=== PATIENT | female | born 1940 | race Caucasian/White ===

== ENCOUNTER 2016-10-26 12:58 | Inpatient (IN) | payer MEDICARE, BC ==
[2016-10-26] MEDS ORDERED: Sodium Chloride 0.9% 10 ML Syringe FLUSH PRN ×2 (13:24→14:36)
[2016-10-26] MEDS ORDERED: Sodium Chloride 0.9% 1,000 ML IV SCH (13:30)
[2016-10-26] MEDS ORDERED: Ondansetron 4 MG/2 ML SDV IVPUSH ONE ×2 (14:01→17:20)
--- NOTE | 2016-10-26 14:01 | CT ---
Head CT Technique: Multiple axial sections through the brain were obtained. Intravenous contrast was not utilized. Comparison: No previous intracranial imaging. Findings: Slight basal ganglia calcification is noted. 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 Slight vascular calcification is noted within the anterior third ventricle. Minimal diminished density is noted within the periventricular white matter compatible with small vessel ischemic demyelination change. No other abnormal parenchymal densities are seen. No evidence of intracranial hemorrhage. No midline shift or mass effect is seen. Ventricles along the basal cisterns and sulci over the convexities are within normal limits for the patient's age. Visualized sinuses shows minimal mucosal thickening within the left sphenoid and within the ethmoid sinuses which is felt to be chronic and incidental. No acute calvarial abnormality is identified. Impression: 1. Senescent change as described above. Incidental sinus findings. 2. Nothing acute is appreciated on noncontrast head CT exam. Diagnostic code #2
--- NOTE | 2016-10-26 14:03 | CR ---
Chest: Portable view of the chest was obtained. Comparison: No prior chest x-ray. Heart size and mediastinum are within normal limits for portable technique. Lungs show minimal increased density within the left upper lobe. Lungs otherwise are clear. Bony structures appear unremarkable for the patient's age. Impression: 1. Minimal density within the left upper lung which may represent slight atelectasis although difficult to completely exclude pulmonary mass or small area of pneumonia. Noncontrast chest CT could be considered to further evaluate. 2. Nothing acute is otherwise seen on portable chest x-ray. Diagnostic code #9
[2016-10-26] MEDS ORDERED: Iopamidol 612 MG/ML 100 ML Bottle IVPUSH ONE (14:36)
[2016-10-26] MEDS ORDERED: Diatrizoate Meglumine/Diatrizoate Sodium 37% 120 ML Bottle PO ONE (14:36)
[2016-10-26] MEDS ORDERED: Iopamidol 755 Mg/ML 100 ML Bottle IVPUSH ONE (15:33)
[2016-10-26] MEDS ORDERED: cefTRIAXone 2 GM in Sodium Chloride 0.9% 100 ML IV ONE (15:50)
[2016-10-26] MEDS ORDERED: Sodium Chloride 0.9% 100 ML IV SCH (16:00)
--- NOTE | 2016-10-26 17:02 | EDM.PDOC ---
ED HPI GENERAL MEDICAL PROBLEM - General Chief Complaint: Abdominal Pain Stated Complaint: [facility] Time Seen by Provider: 10/26/16 13:00 Source of Information: Reports: Patient, Family, Significant Other History Limitations: Reports: No Limitations - History of Present Illness INITIAL COMMENTS - FREE TEXT/NARRATIVE: 75-year-old female presents via EMS for evaluation treatment of amnesia and lower abdominal pain. Patient has amnesia on my evaluation does not provide much history. provides most of the history. Reports that he was with her around 9 AM this morning. States that she was having some lower abdominal cramping, pain and diarrhea. States that he went to get groceries. He returned home around 10 AM. Reports that she was very confused. States she did not know where she was and what happened that morning. She was using the bathroom when he came home. He had difficulty getting off the toilet if her had to call the ambulance for help. Upon arrival to the ER she has no facial droop, slurred speech or unilateral weakness. She is orientated to person and date of but does not know the year or where she is at. She is currently complaining of lower abdominal cramping which resolved after a bowel movement. She is also complaining of nausea and states that she vomited 4 or 5 times today. Last bowel movement was today around 10 AM. She had a small soft bowel movement today. Denies any chest pain or shortness of breath. The patient's son has arrived in the ER. He states that she has had similar amnesia events twice in the past. Reports that she has a history of migraines. Sates that she was previously told that she had a TIA. She was transferred to [place]. In [place] they ruled that she had a transient amnesia event. States that she's had MRIs and a further workup done but the etiology for her TIAs or amnesia have not been identified. Previously saw Dr. Nickerson, neurosurgery at [facility]. She is currently only on a half of a baby aspirin daily per her 's report. Recently placed on ciprofloxacin 250 mg daily for chronic urinary tract infections. She is to be on ciprofloxacin for the next 4 months. Lower Abdomen Pain Score (Numeric/FACES): 7 - Related Data Allergies Allergy/AdvReac Type Severity Reaction Status Date / Time No Known Allergies Allergy Verified 10/26/16 23:26 Home Meds: Home Meds Estradiol [Vagifem] 10 mcg VG WEEKLY 10/10/13 [History] Levothyroxine [Synthroid] 88 mcg PO DAILY 10/10/13 [History] Aspirin 40 mg PO ASDIRECTED 10/26/16 [History] Ciprofloxacin HCl [Cipro] 250 mg PO DAILY 10/26/16 [History] Colon Health 1 tab PO ASDIRECTED 10/26/16 [History] L Acidophil/B Lactis/B Longum [Florajen3] 1 tab PO DAILY 10/26/16 [History] Sennosides/Docusate Sodium [Stool Soft-Stimulant Lax] 1 tab PO ASDIRECTED [History] Past Medical History Cardiovascular History: Reports: Other (See Below) Other Cardiovascular History: hypotension Gastrointestinal History: Reports: Chronic Constipation Genitourinary History: Reports: UTI, Recurrent Musculoskeletal History: Reports: Osteoarthritis Neurological History: Reports: TIA Other Neuro History: x 2 Endocrine/Metabolic History: Reports: Hypothyroidism - Past Surgical History Female Surgical History: Reports: Hysterectomy Musculoskeletal Surgical History: Reports: Other (See Below) Other Musculoskeletal Surgeries/Procedures:: injections to knees Social & Family History - Tobacco Use Smoking Status *Q: Former Smoker Used Tobacco, but Quit: Yes Month Tobacco Last Used: 20 yrs Second Hand Smoke Exposure: No - Caffeine Use Caffeine Use: Reports: Coffee, Soda - Recreational Drug Use Recreational Drug Use: No ED ROS GENERAL - Review of Systems Review Of Systems: See Below (obtained from ) Constitutional: Denies: Fever Respiratory: Denies: Cough GI/Abdominal: Reports: Abdominal Pain (lower abdomen), Diarrhea, Nausea, Vomiting : Reports: Other (frequent UTIs, currently on cipro) Neurological: Reports: Confusion, Weakness. Denies: Headache, Trouble Speaking ED EXAM, GI/ABD - Physical Exam Exam: See Below Exam Limited By: No Limitations General Appearance: WD/WN, Lethargic, Mild Distress, Other (orientated to person and , not orientated to place or time) Eyes: Bilateral: Normal Appearance (PERRLA), EOMI Ears: Normal External Exam Nose: Normal Inspection Throat/Mouth: Normal Inspection, Normal Lips, Normal Voice, No Airway Compromise Respiratory/Chest: No Respiratory Distress, Lungs Clear, Normal Breath Sounds Cardiovascular: Normal Peripheral Pulses, Regular Rate, Rhythm, No Murmur GI/Abdominal Exam: Normal Bowel Sounds, Soft, Tender (lower abdomen greatest in the left lower quadrant) Neurological: Alert, CN II-XII Intact, Confused, Slow to Respond, Memory Loss Recent Events, Other (orientated to person and but not place or time; purchasing assistant, dorsiflexion and plantarflexion are 5/5 bilaterally; no pronator drift, smile is symmetric, able to lift eyebrows, no slurred speech ) Skin Exam: Warm, Dry, Normal Color EKG INTERPRETATION EKG Date: 10/26/16 Time: 13:30 Rhythm: NSR Rate (Beats/Min): 70 [place]: Normal P-Wave: Present QRS: Normal ST-T: Normal QT: Normal EKG Interpretation Comments: NSR at 70 bpm. No acute changes. Reviewed by myself and Dr. Koch. Course - Vital Signs Last Recorded V/S: Last Vital Signs Temp 38.1 C 10/27/16 03:00 Pulse 66 10/26/16 13:06 Resp 13 10/27/16 03:00 BP 112/53 L 10/27/16 03:00 Pulse Ox 99 10/27/16 03:00 - Orders/Labs/Meds Orders: Active Orders 24 hr Category Date Time Status Peripheral IV Care [RC] Q2HR Care 10/26/16 13:24 Active CULTURE BLOOD [BC] Stat Lab 10/26/16 14:30 Received CULTURE BLOOD [BC] Stat Lab 10/26/16 15:00 Received CULTURE URINE [RM] Stat Lab 10/26/16 14:43 Received Sodium Chloride 0.9% [Saline Flush] Med 10/26/16 13:24 Active 10 ml FLUSH ASDIRECTED PRN Sodium Chloride 0.9% [Saline Flush] Med 10/26/16 14:36 Active 10 ml FLUSH ONETIME PRN Blood Culture x2 Reflex Set [OM.PC] Stat Oth 10/26/16 13:24 Ordered Peripheral IV Insertion Adult [OM.PC] Routine Oth 10/26/16 13:24 Ordered Medication Orders Acetaminophen (Tylenol) 650 mg PO Q6H PRN PRN Reason: Pain/Fever Enoxaparin Sodium (Lovenox) 40 mg SUBCUT DAILY PAMELA Last Admin: 10/27/16 08:24 Dose: 40 mg Hydromorphone HCl (Dilaudid) 0.5 mg IVPUSH Q6H PRN PRN Reason: Pain (moderate 4-6) Last Admin: 10/27/16 08:13 Dose: 0.5 mg Admin: 10/27/16 01:29 Dose: 0.5 mg Sodium Chloride (Sodium Chloride 0.45%) 1,000 mls @ 999 mls/hr IV ASDIRECTED [facility] Last Admin: 10/27/16 01:05 Dose: 100 mls/hr Infusion: 10/27/16 01:05 Dose: 999 mls/hr Admin: 10/27/16 00:04 Dose: 999 mls/hr Infusion: 10/27/16 00:03 Dose: 999 mls/hr Admin: 10/26/16 23:02 Dose: 999 mls/hr Ceftriaxone Sodium 2 gm/ (Sodium Chloride) 100 mls @ 200 mls/hr IV Q24H [facility] Metronidazole 500 mg/ Premix 100 mls @ 100 mls/hr IV Q8H [facility] Last Admin: 10/27/16 03:05 Dose: 100 mls/hr Infusion: 10/26/16 22:54 Dose: 100 mls/hr Admin: 10/26/16 21:54 Dose: 100 mls/hr Ketorolac Tromethamine (Toradol) 15 mg IVPUSH Q8H PRN PRN Reason: Pain (severe 7-10) Levothyroxine Sodium (Synthroid) 88 mcg PO ACBREAKFAST [facility] Last Admin: 10/27/16 06:43 Dose: 88 mcg Metoclopramide HCl (Reglan) 10 mg IVPUSH Q6H [facility] Last Admin: 10/27/16 08:21 Dose: 10 mg Admin: 10/27/16 03:05 Dose: 10 mg Admin: 10/26/16 21:34 Dose: 10 mg Ondansetron HCl (Zofran) 4 mg IVPUSH Q8H PRN PRN Reason: Nausea/Vomiting Saccharomyces Boulardii (Florastor) 250 mg PO DAILY [facility] Last Admin: 10/27/16 08:28 Dose: 250 mg Senna/Docusate Sodium (Senna Plus) 2 tab PO BID PRN PRN Reason: Constipation Sodium Chloride (Saline Flush) 10 ml FLUSH ASDIRECTED PRN PRN Reason: Keep Vein Open Last Admin: 10/26/16 14:06 Dose: 10 ml Sodium Chloride (Saline Flush) 10 ml FLUSH ONETIME PRN PRN Reason: IV FLUSH Last Admin: 10/26/16 16:34 Dose: 10 ml Labs: Laboratory Tests 10/26/16 10/26/16 10/26/16 Range/Units 14:30 14:30 14:30 WBC 12.49 H (3.98-10.04) K/mm3 RBC 5.12 (3.98-5.22) M/mm3 Hgb 16.0 H (11.2-15.7) gm/L Hct 46.1 H (34.1-44.9) % MCV 90.0 (79.4-94.8) fl MCH 31.3 (25.6-32.2) pg MCHC 34.7 (32.2-35.5) g/dl RDW Std Deviation 41.4 (36.4-46.3) fL Plt Count 219 (182-369) K/mm3 MPV 10.0 (9.4-12.3) fl Neutrophils % (Manual) 85 H (40-60) % Band Neutrophils % 3 (0-10) % Lymphocytes % (Manual) 11 L (20-40) % Atypical Lymphs % 0 % Monocytes % (Manual) 1 L (2-10) % Eosinophils % (Manual) 0 L (0.7-5.8) % Basophils % (Manual) 0 L (0.1-1.2) Toxic Granulation Few Platelet Estimate Adequate Plt Morphology Comment Normal RBC Morph Comment Normal PT 10.2 (8.0-13.0) SECONDS INR 0.94 APTT 23 (22-36) SECONDS Sodium 138 (136-145) mEq/L Potassium 3.4 L (3.5-5.1) mEq/L Chloride 102 (98-107) mEq/L Carbon Dioxide 22 (21-32) mEq/L Anion Gap 17.4 H (5-15) BUN 23 H (7-18) mg/dL Creatinine 1.2 H (0.55-1.02) mg/dL Est Cr Clr Drug Dosing 37.57 mL/min Estimated GFR (MDRD) 44 (>60) mL/min BUN/Creatinine Ratio 19.2 H (14-18) Glucose 132 H (83-115) mg/dL Lactic Acid (0.4-2.0) mmol/L Calcium 9.9 (8.5-10.1) mg/dL Total Bilirubin 0.7 (0.2-1.0) mg/dL AST 36 (15-37) U/L ALT 45 (14-59) U/L Alkaline Phosphatase 175 H (46-116) U/L C-Reactive Protein < 0.2 (<1.0) mg/dL Total Protein 8.0 (6.4-8.2) g/dl Albumin 4.4 (3.4-5.0) g/dl Globulin 3.6 gm/dL Albumin/Globulin Ratio 1.2 (1-2) Lipase 194 (73-393) U/L Urine Color (Yellow) Urine Appearance (Clear) Urine pH (5.0-8.0) Ur Specific [place] (1.005-1.030) Urine Protein (Negative) Urine Glucose (UA) (Negative) Urine Ketones (Negative) Urine Occult Blood (Negative) Urine Nitrite (Negative) Urine Bilirubin (Negative) Urine Urobilinogen (0.2-1.0) Ur Leukocyte Esterase (Negative) Urine RBC (0-5) /hpf Urine WBC (0-5) /hpf Urine WBC Clumps (NOT SEEN) /hpf Ur Epithelial Cells (0-5) /hpf Urine Bacteria (FEW) /hpf Urine Mucus (FEW) /hpf 10/26/16 10/26/16 10/26/16 Range/Units 14:30 14:43 19:48 WBC (3.98-10.04) K/mm3 RBC (3.98-5.22) M/mm3 Hgb (11.2-15.7) gm/L Hct (34.1-44.9) % MCV (79.4-94.8) fl MCH (25.6-32.2) pg MCHC (32.2-35.5) g/dl RDW Std Deviation (36.4-46.3) fL Plt Count (182-369) K/mm3 MPV (9.4-12.3) fl Neutrophils % (Manual) (40-60) % Band Neutrophils % (0-10) % Lymphocytes % (Manual) (20-40) % Atypical Lymphs % % Monocytes % (Manual) (2-10) % Eosinophils % (Manual) (0.7-5.8) % Basophils % (Manual) (0.1-1.2) Toxic Granulation Platelet Estimate Plt Morphology Comment RBC Morph Comment PT (8.0-13.0) SECONDS INR APTT (22-36) SECONDS Sodium (136-145) mEq/L Potassium (3.5-5.1) mEq/L Chloride (98-107) mEq/L Carbon Dioxide (21-32) mEq/L Anion Gap (5-15) BUN (7-18) mg/dL Creatinine (0.55-1.02) mg/dL Est Cr Clr Drug Dosing mL/min Estimated GFR (MDRD) (>60) mL/min BUN/Creatinine Ratio (14-18) Glucose (83-115) mg/dL Lactic Acid 2.8 H 2.1 H (0.4-2.0) mmol/L Calcium (8.5-10.1) mg/dL Total Bilirubin (0.2-1.0) mg/dL AST (15-37) U/L ALT (14-59) U/L Alkaline Phosphatase (46-116) U/L C-Reactive Protein (<1.0) mg/dL Total Protein (6.4-8.2) g/dl Albumin (3.4-5.0) g/dl Globulin gm/dL Albumin/Globulin Ratio (1-2) Lipase (73-393) U/L Urine Color Dark yellow (Yellow) Urine Appearance Slt cloudy H (Clear) Urine pH 6.0 (5.0-8.0) Ur Specific [place] 1.025 (1.005-1.030) Urine Protein 1+ H (Negative) Urine Glucose (UA) Negative (Negative) Urine Ketones 3+ H (Negative) Urine Occult Blood Negative (Negative) Urine Nitrite Positive H (Negative) Urine Bilirubin 1+ H (Negative) Urine Urobilinogen 1.0 (0.2-1.0) Ur Leukocyte Esterase Trace H (Negative) Urine RBC 0-5 (0-5) /hpf Urine WBC 10-20 H (0-5) /hpf Urine WBC Clumps Few (NOT SEEN) /hpf Ur Epithelial Cells 0-5 (0-5) /hpf Urine Bacteria Many H (FEW) /hpf Urine Mucus Not seen (FEW) /hpf Meds: Medications Generic Name Dose Route Start Last Admin Trade Name Freq PRN Reason Stop Dose Admin Acetaminophen 650 mg 10/26/16 20:19 Tylenol PO Q6H PRN Pain/Fever Enoxaparin Sodium 40 mg 10/27/16 09:00 10/27/16 08:24 Lovenox SUBCUT 40 mg DAILY PAMELA Administration Hydromorphone HCl 0.5 mg 10/26/16 20:19 10/27/16 08:13 Dilaudid IVPUSH 0.5 mg Q6H PRN Administration Pain (moderate 4-6) Sodium Chloride 1,000 mls @ 999 mls/hr 10/26/16 20:30 10/27/16 01:05 Sodium Chloride 0.45% IV 100 mls/hr ASDIRECTED PAMELA Administration Ceftriaxone Sodium 2 gm/ 100 mls @ 200 mls/hr 10/27/16 16:00 Sodium Chloride IV Q24H PAMELA Metronidazole 500 mg/ Premix 100 mls @ 100 mls/hr 10/26/16 20:00 10/27/16 03: 05 IV 100 mls/hr Q8H PAMELA Administration Ketorolac Tromethamine 15 mg 10/26/16 20:27 Toradol IVPUSH Q8H PRN Pain (severe 7-10) Levothyroxine Sodium 88 mcg 10/27/16 06:00 10/27/16 06:43 Synthroid PO 88 mcg ACBREAKFAST PAMELA Administration Metoclopramide HCl 10 mg 10/26/16 20:30 10/27/16 08:21 Reglan IVPUSH 10 mg Q6H PAMELA Administration Ondansetron HCl 4 mg 10/26/16 20:15 Zofran IVPUSH Q8H PRN Nausea/Vomiting Saccharomyces Boulardii 250 mg 10/27/16 09:00 10/27/16 08:28 Florastor PO 250 mg DAILY PAMELA Administration Senna/Docusate Sodium 2 tab 10/27/16 09:09 Senna Plus PO BID PRN Constipation Sodium Chloride 10 ml 10/26/16 13:24 10/26/16 14:06 Saline Flush FLUSH 10 ml ASDIRECTED PRN Administration Keep Vein Open Sodium Chloride 10 ml 10/26/16 14:36 10/26/16 16:34 Saline Flush FLUSH 10 ml ONETIME PRN Administration IV FLUSH Discontinued Medications Generic Name Dose Route Start Last Admin Trade Name Freq PRN Reason Stop Dose Admin Diatrizoate Meglum/Diatrizoate Sod 120 ml 10/26/16 14:36 10/26/16 16:46 Gastrografin 37% PO 10/26/16 14:37 45 ml ONETIME ONE Administration Sodium Chloride 1,000 mls @ 999 mls/hr 10/26/16 13:30 10/26/16 14:07 Normal Saline IV 100 mls/hr ASDIRECTED PAMELA Administration Ceftriaxone Sodium 2 gm/ 100 mls @ 200 mls/hr 10/26/16 15:50 10/26/16 16:08 Sodium Chloride IV 10/26/16 16:19 200 mls/hr ONETIME ONE Administration Sodium Chloride 100 mls @ 65 mls/hr 10/26/16 16:00 10/26/16 16:33 Normal Saline IV 65 mls/hr ASDIRECTED PAMELA Administration Iopamidol 100 ml 10/26/16 14:36 Isovue-300 (61%) IVPUSH 10/26/16 14:37 ONETIME ONE Iopamidol 100 ml 10/26/16 15:33 10/26/16 16:33 Isovue-370 (76%) IVPUSH 10/26/16 15:34 100 ml ONETIME ONE Administration Ondansetron HCl 4 mg 10/26/16 14:01 10/26/16 14:08 Zofran IVPUSH 10/26/16 14:02 4 mg ONETIME ONE Administration Ondansetron HCl 4 mg 10/26/16 17:20 10/26/16 17:24 Zofran IVPUSH 10/26/16 17:21 4 mg ONETIME ONE Administration Senna/Docusate Sodium 1 tab 10/26/16 20:15 Senna Plus PO ASDIRECTED PAMELA - Radiology Interpretation Free Text/Narrative:: Chest xray impression per Dr. Crook: 1. Minimal density within the left upper chest which may represent slight atelectasis although difficult to completely exclude pulmonary mass or small area of pneumonia. Noncontrast chest CT could be considered to further evaluate. 2. Nothing acute is otherwise seen on portable chest x-ray. Head CT impression per Dr. Crook. Head CT obtained without contrast. 1. Senescent change as described. Incidental sinus findings. Old chronic infarct within the left basal ganglia. 2. Nothing acute is identified on noncontrast head CT. Chest and abdomen pelvis with IV and oral contrast impression per Dr. Chow. 1. Multiple small subpleural nodules within the right lung base. Follow-up noncontrast chest CT recommended in 6 months to convert stability. This follow- up exam would occur in April,. 2. No left-sided density is seen to correlate to question finding on recent chest x-ray. 3. Other incidental findings. 1. Diffuse bowel wall thickening within the descending and sigmoid colon with surrounding inflammatory change. Findings compatible with a nonspecific colitis. 2. Other incidental findings. - Re-Assessments/Exams Free Text/Narrative Re-Assessment/Exam: 10/26/16 20:53 Labs include the following wbc is 12.49, hgb is 16.0 and plts are 219 pt is 10.2, inr is 0.94 ptt is 23 lipase is 194 sodium is 138, potassium is 3.4 and chloride is 102. anion gap is 17.4. creatinine is 1.2 crp is <0.2 lactic acid is 2.8, repeated approximately 6 hours later was 2.1 UA has + nitrites, trace leuks, 1+ protein and 3+ ketones. C. Diff is negative I spoke with neurology at [facility] in [place]. Transient amnesia rarely repeats itself. Question if she is having seizures. Recommended EEG and MRI, if she has not already had one, as an outpatient. Follow-up with neurology. She is forming new memories while in the ER but continues to not recall much from this morning. She is now orientated to place and year. I feel she should be admitted for colitis, UTI and ultered mental status. She has received 2grams IV rocephin in the ER, 8mg zofran and 1L NS. Nausea has resolved with zofran. Discussed case with Dr. Fish, Hospitalist, she agrees to the admission. Unfortunately med/surg is on diversion at this time. She will go to the ICU as a med/surg patient due to staffing issues. Departure - Departure Time of Disposition: 20:55 Disposition: Admitted As Inpatient 68 Condition: Fair Clinical Impression: Colitis, Urinary tract infection - Discharge Information - My Orders Last 24 Hours: My Active Orders 10/26/16 13:24 Peripheral IV Care [RC] Q2HR Sodium Chloride 0.9% [Saline Flush] 10 ml FLUSH ASDIRECTED PRN Blood Culture x2 Reflex Set [OM.PC] Stat Peripheral IV Insertion Adult [OM.PC] Routine 10/26/16 14:30 CULTURE BLOOD [BC] Stat 10/26/16 14:36 Sodium Chloride 0.9% [Saline Flush] 10 ml FLUSH ONETIME PRN 10/26/16 14:43 CULTURE URINE [RM] Stat 10/26/16 15:00 CULTURE BLOOD [BC] Stat - Assessment/Plan Last 24 Hours: My Active Orders 10/26/16 13:24 Peripheral IV Care [RC] Q2HR Sodium Chloride 0.9% [Saline Flush] 10 ml FLUSH ASDIRECTED PRN Blood Culture x2 Reflex Set [OM.PC] Stat Peripheral IV Insertion Adult [OM.PC] Routine 10/26/16 14:30 CULTURE BLOOD [BC] Stat 10/26/16 14:36 Sodium Chloride 0.9% [Saline Flush] 10 ml FLUSH ONETIME PRN 10/26/16 14:43 CULTURE URINE [RM] Stat 10/26/16 15:00 CULTURE BLOOD [BC] Stat
--- NOTE | 2016-10-26 17:07 | CT ---
CT chest Technique: Multiple axial sections through the chest are obtained. Intravenous contrast was utilized. Comparison: Previous chest x-ray performed on the same day. Findings: Multiple small subpleural nodules are identified within the right lung base. These show no calcification. Largest nodule measures about 4.8 mm. Slight atelectasis or scarring is seen within the lingula. Lungs otherwise are clear. Density on chest x-ray is not confirmed on the chest CT. Mediastinum and hilar regions show no adenopathy or mass. Slight ectatic descending aorta is noted with AP dimension of 2.7 cm. No pericardial effusion is seen. Bone window settings were reviewed which show slight degenerative change within the spine. Impression: 1. Multiple small subpleural nodules within the right lung base. Follow-up noncontrast chest CT recommended in 6 months to confirm stability. This follow-up exam would occur in April,. 2. No left-sided density is seen to correlate to questioned finding on recent chest x-ray. 3. Other incidental findings. Diagnostic code #9 CT abdomen and pelvis Technique: Multiple axial sections were obtained from above the dome of the diaphragm inferiorly through the pubic symphysis. Intravenous and oral contrast was utilized. Delayed images were also obtained through the abdomen and pelvis. Findings: Diffuse bowel wall thickening is seen within the descending colon and sigmoid colon. Inflammatory change is seen around the descending and sigmoid colon. Liver shows no focal abnormality. Spleen appears within normal limits. Adrenal glands show no nodule. Kidneys show symmetric contrast enhancement without hydronephrosis or mass. Aorta shows atherosclerotic change which continues into the iliac vessels. No aneurysm is seen. Pancreas appears within normal limits. No retroperitoneal adenopathy or mesenteric abnormalities are seen. No pelvic mass or adenopathy is seen. Delayed images shows contrast within the ureters and bladder without findings of obstruction. Bone window settings were reviewed which shows compression deformity T8 which appears to be old. Minimal degenerative change is seen primarily within the apophyseal joints of the lower lumbar spine. Impression: 1. Diffuse bowel wall thickening within the descending and sigmoid colons with surrounding inflammatory change. Findings compatible with a nonspecific colitis. 2. Other incidental findings as described above. Diagnostic code #3
[2016-10-26] MEDS ORDERED: Ondansetron 4 MG/2 ML SDV IVPUSH PRN (20:15)
[2016-10-26] MEDS ORDERED: Acetaminophen Soln 650 MG/20.3 ML UD Cup PO PRN (20:19)
[2016-10-26] MEDS ORDERED: Ketorolac 15 MG/ML SDV IVPUSH PRN (20:27)
--- NOTE | 2016-10-26 20:30 | PCM.HP ---
H&P History of Present Illness - General Date of Service: 10/26/16 Source of Information: Patient, Family, Provider History Limitations: Reports: No Limitations - History of Present Illness Initial Comments - Free Text/Narative: 75 year old female with a history of chronic UTIs, had been started on Cipro by her PCP. She presented to the ED with multiple complaints, MS telemetry admission was initiated after acute on chronic UTI, failed outpatient therapy was documented. She additionally was found to have diverticulitis with a complaint of abdominal pain. She has chronic constipation and requires laxatives to have a bowel movement. Associated with the abdominal pain is nausea with occasional vomiting. There has been no fever or chills. She has had most of primary medical needs via the walk in clinic. Additionally has unfortunately not seen a urologist or restaurant hourly team member regarding her frequent UTIs in several years. She has had a diagnosis of transient amnesia, this reportedly was diagnosed in [place]; additional neurology history includes migraine headaches. There is also a possible TIA history which requires clarification. Onset of Symptoms: Reports: Unknown/Unsure Duration of Symptoms: Reports: Day(s):, Getting Worse Location: Reports: Abdomen Quality: Reports: Same as Previous Episode Severity: Moderate Associated Symptoms: Reports: Malaise, Weakness Lower Abdomen Pain Score (Numeric/FACES): 7 - Related Data Allergies/Adverse Reactions: Allergies Allergy/AdvReac Type Severity Reaction Status Date / Time No Known Allergies Allergy Verified 10/26/16 23:26 Home Medications: Home Meds Estradiol [Vagifem] 10 mcg VG WEEKLY 10/10/13 [History] Levothyroxine [Synthroid] 88 mcg PO DAILY 10/10/13 [History] Aspirin 40 mg PO ASDIRECTED 10/26/16 [History] Ciprofloxacin HCl [Cipro] 250 mg PO DAILY 10/26/16 [History] Colon Health 1 tab PO ASDIRECTED 10/26/16 [History] L Acidophil/B Lactis/B Longum [Florajen3] 1 tab PO DAILY 10/26/16 [History] Sennosides/Docusate Sodium [Stool Soft-Stimulant Lax] 1 tab PO ASDIRECTED [History] Acetaminophen/Butalbital/Caff [Fioricet 325-50-40 MG] 2 tab PO Q8H PRN 10/27/16 [History] Past Medical History Cardiovascular History: Reports: Other (See Below) Other Cardiovascular History: hypotension Gastrointestinal History: Reports: Chronic Constipation Genitourinary History: Reports: UTI, Recurrent Musculoskeletal History: Reports: Osteoarthritis Neurological History: Reports: TIA Other Neuro History: x 2 Endocrine/Metabolic History: Reports: Hypothyroidism - Past Surgical History Female Surgical History: Reports: Hysterectomy Musculoskeletal Surgical History: Reports: Other (See Below) Other Musculoskeletal Surgeries/Procedures:: injections to knees Social & Family History - Tobacco Use Smoking Status *Q: Former Smoker Used Tobacco, but Quit: Yes Month Tobacco Last Used: 20 yrs Second Hand Smoke Exposure: No - Caffeine Use Caffeine Use: Reports: Coffee, Soda - Recreational Drug Use Recreational Drug Use: No H&P Review of Systems - Review of Systems: Review Of Systems: See Below General: Reports: Malaise, Weakness HEENT: Reports: No Symptoms Pulmonary: Reports: No Symptoms Cardiovascular: Reports: No Symptoms Gastrointestinal: Reports: Abdominal Pain, Constipation Genitourinary: Reports: No Symptoms Musculoskeletal: Reports: No Symptoms Skin: Reports: No Symptoms Psychiatric: Reports: No Symptoms Neurological: Reports: No Symptoms Hematologic/Lymphatic: Reports: No Symptoms Immunologic: Reports: No Symptoms Exam - Exam Exam: See Below - Vital Signs Vital Signs: Last Vital Signs Temp 36.2 C 10/26/16 13:06 Pulse 66 10/26/16 13:06 Resp 17 10/26/16 13:06 BP 143/68 H 10/26/16 13:06 Pulse Ox 100 10/26/16 13:06 Weight: 68.039 kg - Exam Quality Assessment: DVT Prophylaxis General: Alert, Oriented HEENT: EOMI, Hearing Intact, Nares Patent, Normal Nasal Septum, Pupils Equal, Pupils Reactive Neck: Supple, Trachea Midline Lungs: Normal Respiratory Effort Cardiovascular: Regular Rate, Regular Rhythm GI/Abdominal Exam: Soft, Non-Tender, No Organomegaly, No Distention (Female) Exam: Deferred Rectal (Female) Exam: Deferred Back Exam: Normal Inspection Extremities: Normal Inspection Skin: Warm Neurological: Cranial Nerves Intact Neuro Extensive - Mental Status: Alert, Oriented x3 Neuro Extensive - Motor, Sensory, Reflexes: CN II-XII Intact Psychiatric: Alert, Depressed - Patient Data Result Diagrams: 10/27/16 06:01 10/27/16 06:01 *Q Meaningful Use (ADM) - VTE *Q VTE Criteria *Q: - Stroke *Q Stroke Criteria *Q: - AMI *Q AMI Criteria *Q: - Problem List (1) Migraine SNOMED Code(s): 20834613 ICD Code: G43.909 - MIGRAINE, UNSP, NOT INTRACTABLE, WITHOUT STATUS MIGRAINOSUS Status: Acute Current Visit: Yes (2) Constipation SNOMED Code(s): 40532857 ICD Code: K59.00 - CONSTIPATION, UNSPECIFIED Status: Acute Current Visit : Yes (3) Colitis SNOMED Code(s): 01283570 ICD Code: K52.9 - NONINFECTIVE GASTROENTERITIS AND COLITIS, UNSPECIFIED Status: Acute Current Visit: Yes (4) Urinary tract infection SNOMED Code(s): 95715596 ICD Code: N39.0 - URINARY TRACT INFECTION, SITE NOT SPECIFIED Status: Acute Current Visit: Yes Problem List Initiated/Reviewed/Updated: Yes Orders Last 24hrs: Active Orders 24 hr Category Date Time Status Activity as Tolerated [RC] .Routine Care 10/26/16 20:20 Ordered Antiembolic Devices [RC] PER UNIT ROUTINE Care 10/26/16 20:17 Ordered Consult to Occupational Therapy [OT Evaluation and Cons 10/26/16 20:21 Ordered Treatment] [CONS] Routine Consult to Physical Therapy [PT Evaluation and Cons 10/26/16 20:20 Ordered Treatment] [CONS] Routine Consult to Sizing Machine Tender [CONS] Routine Cons 10/26/16 20:20 Ordered NPO [Nothing Per Oral Diet] [DIET] Diet 10/27/16 Breakfast Ordered BASIC METABOLIC PANEL,BMP [CHEM] DAILY Lab 10/27/16 05:00 Ordered BASIC METABOLIC PANEL,BMP [CHEM] DAILY Lab 10/28/16 05:00 Ordered BASIC METABOLIC PANEL,BMP [CHEM] DAILY Lab 10/29/16 05:00 Ordered BASIC METABOLIC PANEL,BMP [CHEM] DAILY Lab 10/30/16 05:00 Ordered CBC WITH AUTO DIFF [HEME] DAILY Lab 10/27/16 05:00 Ordered CBC WITH AUTO DIFF [HEME] DAILY Lab 10/28/16 05:00 Ordered CBC WITH AUTO DIFF [HEME] DAILY Lab 10/29/16 05:00 Ordered CBC WITH AUTO DIFF [HEME] DAILY Lab 10/30/16 05:00 Ordered CRP [C-REACTIVE PROTEIN] [CHEM] DAILY Lab 10/27/16 05:00 Ordered CRP [C-REACTIVE PROTEIN] [CHEM] DAILY Lab 10/28/16 05:00 Ordered CRP [C-REACTIVE PROTEIN] [CHEM] DAILY Lab 10/29/16 05:00 Ordered CRP [C-REACTIVE PROTEIN] [CHEM] DAILY Lab 10/30/16 05:00 Ordered LACTIC ACID [CHEM] DAILY Lab 10/27/16 05:00 Ordered LACTIC ACID [CHEM] DAILY Lab 10/28/16 05:00 Ordered MAGNESIUM [CHEM] DAILY Lab 10/27/16 05:00 Ordered MAGNESIUM [CHEM] DAILY Lab 10/28/16 05:00 Ordered MAGNESIUM [CHEM] DAILY Lab 10/29/16 05:00 Ordered MAGNESIUM [CHEM] DAILY Lab 10/30/16 05:00 Ordered WBC, STOOL [OP] Routine Lab 10/27/16 05:00 Uncollected Acetaminophen [Tylenol] Med 10/26/16 20:19 Ordered 650 mg PO Q6H PRN Docusate Sodium/Sennosides [Senna Plus] Med 10/26/16 20:15 Ordered 1 tab PO ASDIRECTED Enoxaparin [Lovenox] Med 10/27/16 09:00 Ordered 30 mg SUBCUT DAILY HYDROmorphone [Dilaudid] Med 10/26/16 20:19 Ordered 0.5 mg IVPUSH Q6H PRN Ketorolac [Toradol] Med 10/26/16 20:27 Ordered 15 mg IVPUSH Q8H PRN L Acidophil/B Lactis/B Longum [Florajen3] Med 10/27/16 09:00 Ordered 1 tab PO DAILY Levothyroxine [Synthroid] Med 10/27/16 09:00 Ordered 88 mcg PO DAILY Metoclopramide [Reglan] Med 10/26/16 20:30 Ordered 10 mg IVPUSH Q6H Ondansetron [Zofran] Med 10/26/16 20:15 Ordered 4 mg IVPUSH Q8H PRN Sodium Chloride 0.45% 1,000 ml Med 10/26/16 20:30 Ordered IV ASDIRECTED cefTRIAXone [Rocephin] 2 gm Med 10/26/16 20:15 Ordered Sodium Chloride 0.9% [Normal Saline] 100 ml IV Q24H metroNIDAZOLE/Normal Saline [Flagyl 500 MG in NS 100 ML Med 10/26/16 20:30 Ordered ] 500 mg Premix Bag 1 bag IV Q8H [facility] Hose [Antiembolic Hose] [OM.PC] Routine Oth 10/26/16 20:17 Ordered Medication Orders Acetaminophen (Tylenol) 650 mg PO Q6H PRN PRN Reason: Pain/Fever Enoxaparin Sodium (Lovenox) 30 mg SUBCUT DAILY [facility] Hydromorphone HCl (Dilaudid) 0.5 mg IVPUSH Q6H PRN PRN Reason: Pain (moderate 4-6) Sodium Chloride (Sodium Chloride 0.45%) 1,000 mls @ 999 mls/hr IV ASDIRECTED [facility] Ceftriaxone Sodium 2 gm/ (Sodium Chloride) 100 mls @ 200 mls/hr IV Q24H [facility] Metronidazole 500 mg/ Premix 100 mls @ 100 mls/hr IV Q8H [facility] Levothyroxine Sodium (Synthroid) 88 mcg PO DAILY [facility] Metoclopramide HCl (Reglan) 10 mg IVPUSH Q6H [facility] Non-Formulary Medication (L Acidophil/B Lactis/B Longum [Florajen3]) 1 tab PO DAILY [facility] Ondansetron HCl (Zofran) 4 mg IVPUSH Q8H PRN PRN Reason: Nausea/Vomiting Senna/Docusate Sodium (Senna Plus) 1 tab PO ASDIRECTED [facility] Sodium Chloride (Saline Flush) 10 ml FLUSH ASDIRECTED PRN PRN Reason: Keep Vein Open Last Admin: 10/26/16 14:06 Dose: 10 ml Sodium Chloride (Saline Flush) 10 ml FLUSH ONETIME PRN PRN Reason: IV FLUSH Last Admin: 10/26/16 16:34 Dose: 10 ml Assessment/Plan Comment:: Impression: Abdominal pain, acute diverticulitis Acute on chronic UTI, failed outpatient Cipro Migraine headache History of transient amnesia (cf TIA) Query depression Plan: NPO IVF Follow electrolytes Pain meds Home meds Rocephin/Flagyl Await Ur Cx Dailly Labs Anti-emetics DVT/GI prohylaxis
[2016-10-26] MEDS: Metoclopramide 10 MG/2 ML SDV IVPUSH SCH (21:34)
[2016-10-26] MEDS: metroNIDAZOLE/Normal Saline 500 MG in Premix Bag 1 BAG IV SCH (21:54)
[2016-10-26] MEDS: Sodium Chloride 0.45% 1,000 ML IV SCH (23:02)
[2016-10-27] MEDS: Sodium Chloride 0.45% 1,000 ML IV SCH ×2 (00:04→01:05)
[2016-10-27] MEDS: HYDROmorphone 0.5 MG/0.5 ML Syringe IVPUSH PRN ×3 (01:29→12:43)
[2016-10-27] MEDS: Metoclopramide 10 MG/2 ML SDV IVPUSH SCH ×4 (03:05→21:13)
[2016-10-27] MEDS: metroNIDAZOLE/Normal Saline 500 MG in Premix Bag 1 BAG IV SCH ×3 (03:05→21:13)
[2016-10-27] MEDS: Levothyroxine 88 MCG Tab PO SCH (06:43)
[2016-10-27] MEDS: Enoxaparin 40 MG/0.4 ML Syringe SUBCUT SCH (08:24)
[2016-10-27] MEDS: Saccharomyces Boulardii (Probiotic) 250 MG Cap PO SCH (08:28)
[2016-10-27] MEDS ORDERED: Magnesium Sulfate/Water 2 GM in Premix Bag 1 BAG IV ONE (10:26)
[2016-10-27] MEDS: Sodium Chloride 0.45% with KCl 1,000 ML IV SCH ×2 (11:17→19:33)
[2016-10-27] MEDS ORDERED: Ondansetron 4 MG/2 ML SDV IVPUSH PRN (12:30)
[2016-10-27] MEDS ORDERED: Caffeine 200 MG Tab PO STA (12:46)
[2016-10-27] MEDS ORDERED: HYDROmorphone 0.5 MG/0.5 ML Syringe IVPUSH PRN (12:49)
[2016-10-27] MEDS ORDERED: Sodium Chloride 0.9% 100 ML ONE (14:35)
[2016-10-27] MEDS: cefTRIAXone 2 GM in Sodium Chloride 0.9% 100 ML IV SCH ×2 (14:40→15:00)
--- NOTE | 2016-10-27 14:54 | PCM.PN ---
- General Info Date of Service: 10/27/16 Functional Status: Reports: Ambulating - Review of Systems General: Reports: Weakness HEENT: Reports: No Symptoms Pulmonary: Reports: No Symptoms Cardiovascular: Reports: No Symptoms Gastrointestinal: Reports: No Symptoms Genitourinary: Reports: No Symptoms Musculoskeletal: Reports: No Symptoms Skin: Reports: No Symptoms Neurological: Reports: No Symptoms Psychiatric: Reports: No Symptoms - Patient Data Vitals - Most Recent: Last Vital Signs Temp 37.2 C 10/27/16 11:35 Pulse 79 10/27/16 11:36 Resp 12 10/27/16 11:35 BP 107/58 L 10/27/16 11:36 Pulse Ox 96 10/27/16 11:36 Weight - Most Recent: 68.039 kg I&O - Last 24 Hours: Intake & Output 10/26/16 10/27/16 10/27/16 22:59 06:59 14:59 Intake Total 2501 Output Total 300 Balance 2201 Lab Results Last 24 Hours: Laboratory Results - last 24 hr 10/27/16 10/27/16 10/27/16 Range/Units 04:34 06:01 06:01 WBC 13.43 H (3.98-10.04) K/mm3 RBC 4.19 (3.98-5.22) M/mm3 Hgb 13.3 (11.2-15.7) gm/L Hct 38.6 (34.1-44.9) % MCV 92.1 (79.4-94.8) fl MCH 31.7 (25.6-32.2) pg MCHC 34.5 (32.2-35.5) g/dl RDW Std Deviation 42.2 (36.4-46.3) fL Plt Count 178 L (182-369) K/mm3 MPV 10.4 (9.4-12.3) fl Neut % (Auto) 83.2 H (34.0-71.1) % Lymph % (Auto) 7.4 L (19.3-51.7) % Yancey % (Auto) 9.2 (4.7-12.5) % Eos % (Auto) 0 L (0.7-5.8) Baso % (Auto) 0.1 (0.1-1.2) % Neut # (Auto) 11.16 H (1.56-6.13) K/mm3 Lymph # (Auto) 1.00 L (1.18-3.74) K/mm3 Yancey # (Auto) 1.23 H (0.24-0.36) K/mm3 Eos # (Auto) 0.00 L (0.04-0.36) K/mm3 Baso # (Auto) 0.02 (0.01-0.08) K/mm3 Manual Slide Review Abnormal smear Sodium 138 (136-145) mEq/L Potassium 3.5 (3.5-5.1) mEq/L Chloride 105 (98-107) mEq/L Carbon Dioxide 22 (21-32) mEq/L Anion Gap 14.5 (5-15) BUN 15 (7-18) mg/dL Creatinine 1.0 (0.55-1.02) mg/dL Est Cr Clr Drug Dosing 39.63 mL/min Estimated GFR (MDRD) 54 (>60) mL/min BUN/Creatinine Ratio 15.0 (14-18) Glucose 116 H (83-115) mg/dL Lactic Acid (0.4-2.0) mmol/L Calcium 7.6 L (8.5-10.1) mg/dL Magnesium 1.7 L (1.8-2.4) mg/dl C-Reactive Protein 5.4 H* (<1.0) mg/dL C.difficile [id number] Presumptive negative C. difficile Tox (PCR) Negative 10/27/16 Range/Units 06:01 WBC (3.98-10.04) K/mm3 RBC (3.98-5.22) M/mm3 Hgb (11.2-15.7) gm/L Hct (34.1-44.9) % MCV (79.4-94.8) fl MCH (25.6-32.2) pg MCHC (32.2-35.5) g/dl RDW Std Deviation (36.4-46.3) fL Plt Count (182-369) K/mm3 MPV (9.4-12.3) fl Neut % (Auto) (34.0-71.1) % Lymph % (Auto) (19.3-51.7) % Yancey % (Auto) (4.7-12.5) % Eos % (Auto) (0.7-5.8) Baso % (Auto) (0.1-1.2) % Neut # (Auto) (1.56-6.13) K/mm3 Lymph # (Auto) (1.18-3.74) K/mm3 Yancey # (Auto) (0.24-0.36) K/mm3 Eos # (Auto) (0.04-0.36) K/mm3 Baso # (Auto) (0.01-0.08) K/mm3 Manual Slide Review Sodium (136-145) mEq/L Potassium (3.5-5.1) mEq/L Chloride (98-107) mEq/L Carbon Dioxide (21-32) mEq/L Anion Gap (5-15) BUN (7-18) mg/dL Creatinine (0.55-1.02) mg/dL Est Cr Clr Drug Dosing mL/min Estimated GFR (MDRD) (>60) mL/min BUN/Creatinine Ratio (14-18) Glucose (83-115) mg/dL Lactic Acid 1.0 (0.4-2.0) mmol/L Calcium (8.5-10.1) mg/dL Magnesium (1.8-2.4) mg/dl C-Reactive Protein (<1.0) mg/dL C.difficile [id number] C. difficile Tox (PCR) Alan Results Last 24 Hours: Microbiology 10/27/16 04:34 Stool for WBCs - Final Stool / Feces Med Orders - Current: Current Medications Acetaminophen (Tylenol) 650 mg PO Q6H PRN PRN Reason: Pain/Fever Acetaminophen/Butalbital/Caffeine (Fioricet 325-50-40 Mg) 2 tab PO Q8H PRN PRN Reason: Headache Enoxaparin Sodium (Lovenox) 40 mg SUBCUT DAILY [facility] Last Admin: 10/27/16 08:24 Dose: 40 mg Hydromorphone HCl (Dilaudid) 0.5 mg IVPUSH Q4H PRN PRN Reason: Pain (moderate 4-6) Ceftriaxone Sodium 2 gm/ (Sodium Chloride) 100 mls @ 200 mls/hr IV Q24H [facility] Last Admin: 10/27/16 14:40 Dose: 200 mls/hr Metronidazole 500 mg/ Premix 100 mls @ 100 mls/hr IV Q8H [facility] Last Admin: 10/27/16 11:18 Dose: 100 mls/hr Potassium Chloride/Sodium Chloride (1/2 Ns With 20 Meq Kcl) 1,000 mls @ 125 mls /hr IV ASDIRECTED [facility] Last Admin: 10/27/16 11:17 Dose: 125 mls/hr Ketorolac Tromethamine (Toradol) 15 mg IVPUSH Q8H PRN PRN Reason: Pain (severe 7-10) Last Admin: 10/27/16 11:24 Dose: 15 mg Levothyroxine Sodium (Synthroid) 88 mcg PO ACBREAKFAST [facility] Last Admin: 10/27/16 06:43 Dose: 88 mcg Metoclopramide HCl (Reglan) 10 mg IVPUSH Q6H [facility] Last Admin: 10/27/16 14:17 Dose: 10 mg Ondansetron HCl (Zofran) 4 mg IVPUSH Q8H PRN PRN Reason: Nausea/Vomiting Ondansetron HCl (Zofran) 4 mg IVPUSH Q8H PRN PRN Reason: Nausea/Vomiting Pantoprazole Sodium (Protonix Iv) 40 mg IVPUSH Q12H [facility] Saccharomyces Boulardii (Florastor) 250 mg PO DAILY [facility] Last Admin: 10/27/16 08:28 Dose: 250 mg Senna/Docusate Sodium (Senna Plus) 2 tab PO BID PRN PRN Reason: Constipation Sodium Chloride (Saline Flush) 10 ml FLUSH ASDIRECTED PRN PRN Reason: Keep Vein Open Last Admin: 10/26/16 14:06 Dose: 10 ml Sodium Chloride (Saline Flush) 10 ml FLUSH ONETIME PRN PRN Reason: IV FLUSH Last Admin: 10/26/16 16:34 Dose: 10 ml Discontinued Medications Caffeine (Caffeine) 200 mg PO NOW STA Stop: 10/27/16 12:47 Last Admin: 10/27/16 14:39 Dose: Not Given Diatrizoate Meglum/Diatrizoate Sod (Gastrografin 37%) 120 ml PO ONETIME ONE Stop: 10/26/16 14:37 Last Admin: 10/26/16 16:46 Dose: 45 ml Hydromorphone HCl (Dilaudid) 0.5 mg IVPUSH Q6H PRN PRN Reason: Pain (moderate 4-6) Last Admin: 10/27/16 12:43 Dose: 0.5 mg Sodium Chloride (Normal Saline) 1,000 mls @ 999 mls/hr IV ASDIRECTED [facility] Last Admin: 10/26/16 14:07 Dose: 100 mls/hr Ceftriaxone Sodium 2 gm/ (Sodium Chloride) 100 mls @ 200 mls/hr IV ONETIME ONE Stop: 10/26/16 16:19 Last Admin: 10/26/16 16:08 Dose: 200 mls/hr Sodium Chloride (Normal Saline) 100 mls @ 65 mls/hr IV ASDIRECTED [facility] Last Admin: 10/26/16 16:33 Dose: 65 mls/hr Sodium Chloride (Sodium Chloride 0.45%) 1,000 mls @ 999 mls/hr IV ASDIRECTED [facility] Last Admin: 10/27/16 01:05 Dose: 100 mls/hr Magnesium Sulfate 2 gm/ Premix 50 mls @ 25 mls/hr IV ONETIME ONE Stop: 10/27/16 12:25 Last Admin: 10/27/16 11:18 Dose: 25 mls/hr Sodium Chloride (Normal Saline) Confirm Administered Dose 100 mls @ as directed .ROUTE .STK-MED ONE Stop: 10/27/16 14:36 Iopamidol (Isovue-300 (61%)) 100 ml IVPUSH ONETIME ONE Stop: 10/26/16 14:37 Iopamidol (Isovue-370 (76%)) 100 ml IVPUSH ONETIME ONE Stop: 10/26/16 15:34 Last Admin: 10/26/16 16:33 Dose: 100 ml Ondansetron HCl (Zofran) 4 mg IVPUSH ONETIME ONE Stop: 10/26/16 14:02 Last Admin: 10/26/16 14:08 Dose: 4 mg Ondansetron HCl (Zofran) 4 mg IVPUSH ONETIME ONE Stop: 10/26/16 17:21 Last Admin: 10/26/16 17:24 Dose: 4 mg Senna/Docusate Sodium (Senna Plus) 1 tab PO ASDIRECTED [facility] - Exam Quality Assessment: DVT Prophylaxis General: Alert, Oriented, No Acute Distress HEENT: Pupils Reactive, EOMI Neck: Supple, Trachea Midline Lungs: Normal Respiratory Effort Cardiovascular: Regular Rate, Regular Rhythm GI/Abdominal Exam: Normal Bowel Sounds, Soft, Non-Tender, No Organomegaly, No Distention (Female) Exam: Deferred Back Exam: Normal Inspection Extremities: Normal Inspection Skin: Warm, Dry, Intact Wound/Incisions: Healing Well Neurological: No New Focal Deficit Psy/Mental Status: Alert - Problem List & Annotations (1) Migraine SNOMED Code(s): 64063374 Code(s): G43.909 - MIGRAINE, UNSP, NOT INTRACTABLE, WITHOUT STATUS MIGRAINOSUS Status: Acute Current Visit: Yes (2) Constipation SNOMED Code(s): 02332277 Code(s): K59.00 - CONSTIPATION, UNSPECIFIED Status: Acute Current Visit: Yes (3) Colitis SNOMED Code(s): 44798294 Code(s): K52.9 - NONINFECTIVE GASTROENTERITIS AND COLITIS, UNSPECIFIED Status: Acute Current Visit: Yes (4) Urinary tract infection SNOMED Code(s): 11884160 Code(s): N39.0 - URINARY TRACT INFECTION, SITE NOT SPECIFIED Status: Acute Current Visit: Yes - Problem List Review Problem List Initiated/Reviewed/Updated: Yes - My Orders Last 24 Hours: My Active Orders 10/26/16 20:00 metroNIDAZOLE/Normal Saline [Flagyl 500 MG in NS 100 ML] 500 mg Premix Bag 1 bag IV Q8H 10/26/16 20:15 Ondansetron [Zofran] 4 mg IVPUSH Q8H PRN 10/26/16 20:17 Antiembolic Devices [RC] PER UNIT ROUTINE [facility]ERESA Hose [Antiembolic Hose] [OM.PC] Routine 10/26/16 20:19 Acetaminophen [Tylenol] 650 mg PO Q6H PRN 10/26/16 20:20 Activity as Tolerated [RC] .Routine Consult to Physical Therapy [PT Evaluation and Treatment] [CONS] Routine Consult to Access Clinician [CONS] Routine 10/26/16 20:21 Consult to Occupational Therapy [OT Evaluation and Treatment] [CONS] Routine 10/26/16 20:27 Ketorolac [Toradol] 15 mg IVPUSH Q8H PRN 10/26/16 20:30 Metoclopramide [Reglan] 10 mg IVPUSH Q6H 10/27/16 06:00 Levothyroxine [Synthroid] 88 mcg PO ACBREAKFAST 10/27/16 09:00 Enoxaparin [Lovenox] 40 mg SUBCUT DAILY Saccharomyces Boulardii [Florastor] 250 mg PO DAILY 10/27/16 09:09 Docusate Sodium/Sennosides [Senna Plus] 2 tab PO BID PRN 10/27/16 10:30 Sodium Chloride 0.45% with KCl [1/2 NS with 20 mEq KCl] 1,000 ml IV ASDIRECTED 10/27/16 12:28 Acetaminophen/Butalbital/Caff [Fioricet 325-50-40 MG] 2 tab PO Q8H PRN Code Status [Resuscitation Status] Routine 10/27/16 12:30 Ondansetron [Zofran] 4 mg IVPUSH Q8H PRN 10/27/16 12:49 HYDROmorphone [Dilaudid] 0.5 mg IVPUSH Q4H PRN 10/27/16 15:00 Pantoprazole [ProTONIX IV] 40 mg IVPUSH Q12H 10/27/16 16:00 cefTRIAXone [Rocephin] 2 gm Sodium Chloride 0.9% [Normal Saline] 100 ml IV Q24H 10/27/16 Breakfast NPO [Nothing Per Oral Diet] [DIET] 10/28/16 05:00 BASIC METABOLIC PANEL,BMP [CHEM] DAILY CBC WITH AUTO DIFF [HEME] DAILY CRP [C-REACTIVE PROTEIN] [CHEM] DAILY LACTIC ACID [CHEM] DAILY MAGNESIUM [CHEM] DAILY TSH [CHEM] Routine 10/29/16 05:00 BASIC METABOLIC PANEL,BMP [CHEM] DAILY CBC WITH AUTO DIFF [HEME] DAILY CRP [C-REACTIVE PROTEIN] [CHEM] DAILY MAGNESIUM [CHEM] DAILY 10/30/16 05:00 BASIC METABOLIC PANEL,BMP [CHEM] DAILY CBC WITH AUTO DIFF [HEME] DAILY CRP [C-REACTIVE PROTEIN] [CHEM] DAILY MAGNESIUM [CHEM] DAILY - Plan Plan:: Impression: Abdominal pain, acute diverticulitis Acute on chronic UTI, failed outpatient Cipro Migraine headache History of transient amnesia (cf TIA) Query depression Plan: NPO IVF Follow electrolytes Pain meds Home meds Rocephin/Flagyl Await Ur Cx Dailly Labs Anti-emetics DVT/GI prohylaxis
[2016-10-27] MEDS: Pantoprazole 40 MG Vial IVPUSH SCH (16:12)
[2016-10-27] MEDS: Acetaminophen/Butalbital/Caffeine 325-50-40 MG Tab PO PRN (19:33)
[2016-10-28] MEDS: Metoclopramide 10 MG/2 ML SDV IVPUSH SCH ×4 (02:31→20:44)
[2016-10-28] MEDS: Pantoprazole 40 MG Vial IVPUSH SCH ×3 (02:31→14:31)
[2016-10-28] MEDS: Acetaminophen/Butalbital/Caffeine 325-50-40 MG Tab PO PRN (04:46)
[2016-10-28] MEDS: metroNIDAZOLE/Normal Saline 500 MG in Premix Bag 1 BAG IV SCH ×3 (04:47→20:34)
[2016-10-28] MEDS: Levothyroxine 88 MCG Tab PO SCH (05:49)
[2016-10-28] MEDS: Saccharomyces Boulardii (Probiotic) 250 MG Cap PO SCH (08:05)
[2016-10-28] MEDS: Enoxaparin 40 MG/0.4 ML Syringe SUBCUT SCH (09:32)
[2016-10-28] MEDS: Sodium Chloride 0.45% with KCl 1,000 ML IV SCH (10:55)
--- NOTE | 2016-10-28 11:34 | PCM.PN ---
- General Info Date of Service: 10/28/16 Functional Status: Reports: Pain Controlled (decreased) - Review of Systems General: Reports: Weakness HEENT: Reports: No Symptoms Pulmonary: Reports: No Symptoms Cardiovascular: Reports: No Symptoms Gastrointestinal: Reports: No Symptoms Genitourinary: Reports: No Symptoms Musculoskeletal: Reports: No Symptoms Skin: Reports: No Symptoms Neurological: Reports: No Symptoms Psychiatric: Reports: No Symptoms - Patient Data Vitals - Most Recent: Last Vital Signs Temp 36.8 C 10/28/16 04:55 Pulse 86 10/28/16 04:55 Resp 18 10/28/16 04:55 BP 125/65 10/28/16 04:55 Pulse Ox 93 L 10/28/16 04:55 Weight - Most Recent: 66.423 kg I&O - Last 24 Hours: Intake & Output 10/27/16 10/28/16 10/28/16 22:59 06:59 14:59 Intake Total 1967 1650 Output Total 350 Balance 1617 1650 Lab Results Last 24 Hours: Laboratory Results - last 24 hr 10/28/16 10/28/16 10/28/16 Range/Units 05:42 05:42 05:42 WBC 12.20 H (3.98-10.04) K/mm3 RBC 4.18 (3.98-5.22) M/mm3 Hgb 13.2 (11.2-15.7) gm/L Hct 38.4 (34.1-44.9) % MCV 91.9 (79.4-94.8) fl MCH 31.6 (25.6-32.2) pg MCHC 34.4 (32.2-35.5) g/dl RDW Std Deviation 41.2 (36.4-46.3) fL Plt Count 183 (182-369) K/mm3 MPV 9.8 (9.4-12.3) fl Neut % (Auto) 84.8 H (34.0-71.1) % Lymph % (Auto) 7.5 L (19.3-51.7) % [place] % (Auto) 7.1 (4.7-12.5) % Eos % (Auto) 0.2 L (0.7-5.8) Baso % (Auto) 0.2 (0.1-1.2) % Neut # (Auto) 10.35 H (1.56-6.13) K/mm3 Lymph # (Auto) 0.91 L (1.18-3.74) K/mm3 [place] # (Auto) 0.87 H (0.24-0.36) K/mm3 Eos # (Auto) 0.03 L (0.04-0.36) K/mm3 Baso # (Auto) 0.02 (0.01-0.08) K/mm3 Manual Slide Review Abnormal smear Sodium 139 (136-145) mEq/L Potassium 4.1 (3.5-5.1) mEq/L Chloride 107 (98-107) mEq/L Carbon Dioxide 21 (21-32) mEq/L Anion Gap 15.1 H (5-15) BUN 8 (7-18) mg/dL Creatinine 1.0 (0.55-1.02) mg/dL Est Cr Clr Drug Dosing 39.63 mL/min Estimated GFR (MDRD) 54 (>60) mL/min BUN/Creatinine Ratio 8.0 L (14-18) Glucose 92 (83-115) mg/dL Lactic Acid 1.0 (0.4-2.0) mmol/L Calcium 8.3 L (8.5-10.1) mg/dL Magnesium 2.2 (1.8-2.4) mg/dl C-Reactive Protein 11.0 H* (<1.0) mg/dL TSH 3rd Generation 1.616 (0.358-3.74) uIU/mL Alan Results Last 24 Hours: Microbiology 10/27/16 04:34 Stool for WBCs - Final Stool / Feces Med Orders - Current: Current Medications Acetaminophen (Tylenol) 650 mg PO Q6H PRN PRN Reason: Pain/Fever Acetaminophen/Butalbital/Caffeine (Fioricet 325-50-40 Mg) 2 tab PO Q8H PRN PRN Reason: Headache Last Admin: 10/28/16 04:46 Dose: 2 tab Enoxaparin Sodium (Lovenox) 40 mg SUBCUT DAILY [facility] Last Admin: 10/28/16 09:32 Dose: 40 mg Hydromorphone HCl (Dilaudid) 0.5 mg IVPUSH Q4H PRN PRN Reason: Pain (moderate 4-6) Ceftriaxone Sodium 2 gm/ (Sodium Chloride) 100 mls @ 200 mls/hr IV Q24H [facility] Last Admin: 10/27/16 15:00 Dose: Not Given Metronidazole 500 mg/ Premix 100 mls @ 100 mls/hr IV Q8H [facility] Last Admin: 10/28/16 11:02 Dose: 100 mls/hr Potassium Chloride/Sodium Chloride (1/2 Ns With 20 Meq Kcl) 1,000 mls @ 50 mls/ hr IV ASDIRECTED [facility] Last Admin: 10/28/16 10:55 Dose: 50 mls/hr Ketorolac Tromethamine (Toradol) 15 mg IVPUSH Q8H PRN PRN Reason: Pain (severe 7-10) Last Admin: 10/27/16 11:24 Dose: 15 mg Levothyroxine Sodium (Synthroid) 88 mcg PO ACBREAKFAST [facility] Last Admin: 10/28/16 05:49 Dose: 88 mcg Metoclopramide HCl (Reglan) 10 mg IVPUSH Q6H [facility] Last Admin: 10/28/16 08:05 Dose: 10 mg Ondansetron HCl (Zofran) 4 mg IVPUSH Q8H PRN PRN Reason: Nausea/Vomiting Ondansetron HCl (Zofran) 4 mg IVPUSH Q8H PRN PRN Reason: Nausea/Vomiting Pantoprazole Sodium (Protonix Iv) 40 mg IVPUSH Q12H [facility] Last Admin: 10/28/16 04:38 Dose: 40 mg Saccharomyces Boulardii (Florastor) 250 mg PO DAILY [facility] Last Admin: 10/28/16 08:05 Dose: 250 mg Senna/Docusate Sodium (Senna Plus) 2 tab PO BID PRN PRN Reason: Constipation Sodium Chloride (Saline Flush) 10 ml FLUSH ASDIRECTED PRN PRN Reason: Keep Vein Open Last Admin: 10/26/16 14:06 Dose: 10 ml Sodium Chloride (Saline Flush) 10 ml FLUSH ONETIME PRN PRN Reason: IV FLUSH Last Admin: 10/26/16 16:34 Dose: 10 ml Discontinued Medications Caffeine (Caffeine) 200 mg PO NOW STA Stop: 10/27/16 12:47 Last Admin: 10/27/16 14:39 Dose: Not Given Diatrizoate Meglum/Diatrizoate Sod (Gastrografin 37%) 120 ml PO ONETIME ONE Stop: 10/26/16 14:37 Last Admin: 10/26/16 16:46 Dose: 45 ml Hydromorphone HCl (Dilaudid) 0.5 mg IVPUSH Q6H PRN PRN Reason: Pain (moderate 4-6) Last Admin: 10/27/16 12:43 Dose: 0.5 mg Sodium Chloride (Normal Saline) 1,000 mls @ 999 mls/hr IV ASDIRECTED [facility] Last Admin: 10/26/16 14:07 Dose: 100 mls/hr Ceftriaxone Sodium 2 gm/ (Sodium Chloride) 100 mls @ 200 mls/hr IV ONETIME ONE Stop: 10/26/16 16:19 Last Admin: 10/26/16 16:08 Dose: 200 mls/hr Sodium Chloride (Normal Saline) 100 mls @ 65 mls/hr IV ASDIRECTED [facility] Last Admin: 10/26/16 16:33 Dose: 65 mls/hr Sodium Chloride (Sodium Chloride 0.45%) 1,000 mls @ 999 mls/hr IV ASDIRECTED [facility] Last Admin: 10/27/16 01:05 Dose: 100 mls/hr Magnesium Sulfate 2 gm/ Premix 50 mls @ 25 mls/hr IV ONETIME ONE Stop: 10/27/16 12:25 Last Admin: 10/27/16 11:18 Dose: 25 mls/hr Potassium Chloride/Sodium Chloride (1/2 Ns With 20 Meq Kcl) 1,000 mls @ 125 mls /hr IV ASDIRECTED [facility] Last Admin: 10/27/16 19:33 Dose: 125 mls/hr Sodium Chloride (Normal Saline) Confirm Administered Dose 100 mls @ as directed .ROUTE .STK-MED ONE Stop: 10/27/16 14:36 Last Admin: 10/27/16 14:55 Dose: Not Given Iopamidol (Isovue-300 (61%)) 100 ml IVPUSH ONETIME ONE Stop: 10/26/16 14:37 Iopamidol (Isovue-370 (76%)) 100 ml IVPUSH ONETIME ONE Stop: 10/26/16 15:34 Last Admin: 10/26/16 16:33 Dose: 100 ml Ondansetron HCl (Zofran) 4 mg IVPUSH ONETIME ONE Stop: 10/26/16 14:02 Last Admin: 10/26/16 14:08 Dose: 4 mg Ondansetron HCl (Zofran) 4 mg IVPUSH ONETIME ONE Stop: 10/26/16 17:21 Last Admin: 10/26/16 17:24 Dose: 4 mg Senna/Docusate Sodium (Senna Plus) 1 tab PO ASDIRECTED [facility] - Exam Quality Assessment: DVT Prophylaxis General: Alert, Oriented, Cooperative, No Acute Distress HEENT: Pupils Equal, Pupils Reactive, EOMI Neck: Supple, Trachea Midline Lungs: Normal Respiratory Effort Cardiovascular: Regular Rate, Regular Rhythm GI/Abdominal Exam: Normal Bowel Sounds, Soft, No Organomegaly, No Distention, Tender (Female) Exam: Deferred Back Exam: Normal Inspection Extremities: Normal Inspection, No Pedal Edema Skin: Warm, Dry Wound/Incisions: Healing Well Neurological: No New Focal Deficit, Normal Speech Psy/Mental Status: Alert, Depressed - Problem List & Annotations (1) Migraine SNOMED Code(s): 63216659 Code(s): G43.909 - MIGRAINE, UNSP, NOT INTRACTABLE, WITHOUT STATUS MIGRAINOSUS Status: Acute Current Visit: Yes (2) Constipation SNOMED Code(s): 59337884 Code(s): K59.00 - CONSTIPATION, UNSPECIFIED Status: Acute Current Visit: Yes (3) Colitis SNOMED Code(s): 60925329 Code(s): K52.9 - NONINFECTIVE GASTROENTERITIS AND COLITIS, UNSPECIFIED Status: Acute Current Visit: Yes (4) Urinary tract infection SNOMED Code(s): 26688729 Code(s): N39.0 - URINARY TRACT INFECTION, SITE NOT SPECIFIED Status: Acute Current Visit: Yes - Problem List Review Problem List Initiated/Reviewed/Updated: Yes - My Orders Last 24 Hours: My Active Orders 10/27/16 12:28 Acetaminophen/Butalbital/Caff [Fioricet 325-50-40 MG] 2 tab PO Q8H PRN Code Status [Resuscitation Status] Routine 10/27/16 12:30 Ondansetron [Zofran] 4 mg IVPUSH Q8H PRN 10/27/16 12:49 HYDROmorphone [Dilaudid] 0.5 mg IVPUSH Q4H PRN 10/27/16 15:00 Pantoprazole [ProTONIX IV] 40 mg IVPUSH Q12H 10/27/16 16:00 cefTRIAXone [Rocephin] 2 gm Sodium Chloride 0.9% [Normal Saline] 100 ml IV Q24H 10/27/16 22:07 Oxygen Therapy [RC] ASDIRECTED 10/28/16 10:30 Sodium Chloride 0.45% with KCl [1/2 NS with 20 mEq KCl] 1,000 ml IV ASDIRECTED 10/28/16 Lunch Clear Liquid Diet [DIET] 10/29/16 05:00 BASIC METABOLIC PANEL,BMP [CHEM] DAILY CBC WITH AUTO DIFF [HEME] DAILY CRP [C-REACTIVE PROTEIN] [CHEM] DAILY MAGNESIUM [CHEM] DAILY 10/30/16 05:00 BASIC METABOLIC PANEL,BMP [CHEM] DAILY CBC WITH AUTO DIFF [HEME] DAILY CRP [C-REACTIVE PROTEIN] [CHEM] DAILY MAGNESIUM [CHEM] DAILY - Plan Plan:: Impression: Abdominal pain, acute diverticulitis Acute on chronic UTI, failed outpatient Cipro Migraine headache-->improved History of transient amnesia (cf TIA) Query depression Plan: NPO-->change to clear liquids IVF Follow electrolytes Pain meds Home meds Rocephin/Flagyl Await Ur Cx [facility] Labs Anti-emetics DVT/GI prohylaxis
[2016-10-28] MEDS: cefTRIAXone 2 GM in Sodium Chloride 0.9% 100 ML IV SCH (16:04)
[2016-10-29] MEDS: Acetaminophen/Butalbital/Caffeine 325-50-40 MG Tab PO PRN (00:44)
[2016-10-29] MEDS: Metoclopramide 10 MG/2 ML SDV IVPUSH SCH ×4 (03:18→21:21)
[2016-10-29] MEDS: Pantoprazole 40 MG Vial IVPUSH SCH (03:18)
[2016-10-29] MEDS: metroNIDAZOLE/Normal Saline 500 MG in Premix Bag 1 BAG IV SCH ×3 (03:26→21:22)
[2016-10-29] MEDS: Levothyroxine 88 MCG Tab PO SCH (07:24)
[2016-10-29] MEDS ORDERED: Diphtheria,Pertussis(Acell),Tetanus Vaccine 0.5 ML SDV IM ONE (08:07)
[2016-10-29] MEDS: Pantoprazole 40 MG Tab.CR PO SCH ×2 (09:08→21:22)
[2016-10-29] MEDS: Enoxaparin 40 MG/0.4 ML Syringe SUBCUT SCH (09:13)
[2016-10-29] MEDS: Saccharomyces Boulardii (Probiotic) 250 MG Cap PO SCH ×2 (09:24→10:43)
[2016-10-29] MEDS: Sodium Chloride 0.45% with KCl 1,000 ML IV SCH (10:42)
--- NOTE | 2016-10-29 12:47 | PCM.PN ---
- General Info Date of Service: 10/29/16 Functional Status: Reports: Tolerating Diet, Ambulating, Urinating - Review of Systems General: Reports: Weakness HEENT: Reports: No Symptoms Pulmonary: Reports: No Symptoms Cardiovascular: Reports: No Symptoms Gastrointestinal: Reports: No Symptoms Genitourinary: Reports: No Symptoms Musculoskeletal: Reports: Leg Pain Skin: Reports: No Symptoms Neurological: Reports: Difficulty Walking Psychiatric: Reports: No Symptoms - Patient Data Vitals - Most Recent: Last Vital Signs Temp 36.7 C 10/29/16 09:14 Pulse 69 10/29/16 09:14 Resp 16 10/29/16 09:11 BP 120/65 10/29/16 09:11 Pulse Ox 97 10/29/16 09:14 Weight - Most Recent: 65.453 kg I&O - Last 24 Hours: Intake & Output 10/28/16 10/29/16 10/29/16 22:59 06:59 14:59 Intake Total 2082 1152 120 Balance 2082 1152 120 Lab Results Last 24 Hours: Laboratory Results - last 24 hr 10/29/16 10/29/16 Range/Units 06:01 06:01 WBC 8.39 (3.98-10.04) K/mm3 RBC 3.87 L (3.98-5.22) M/mm3 Hgb 12.1 (11.2-15.7) gm/L Hct 35.7 (34.1-44.9) % MCV 92.2 (79.4-94.8) fl MCH 31.3 (25.6-32.2) pg MCHC 33.9 (32.2-35.5) g/dl RDW Std Deviation 40.9 (36.4-46.3) fL Plt Count 179 L (182-369) K/mm3 MPV 10.0 (9.4-12.3) fl Neut % (Auto) 74.4 H (34.0-71.1) % Lymph % (Auto) 14.9 L (19.3-51.7) % [place] % (Auto) 9.2 (4.7-12.5) % Eos % (Auto) 1.1 (0.7-5.8) Baso % (Auto) 0.2 (0.1-1.2) % Neut # (Auto) 6.24 H (1.56-6.13) K/mm3 Lymph # (Auto) 1.25 (1.18-3.74) K/mm3 [place] # (Auto) 0.77 H (0.24-0.36) K/mm3 Eos # (Auto) 0.09 (0.04-0.36) K/mm3 Baso # (Auto) 0.02 (0.01-0.08) K/mm3 Sodium 139 (136-145) mEq/L Potassium 3.6 (3.5-5.1) mEq/L Chloride 107 (98-107) mEq/L Carbon Dioxide 23 (21-32) mEq/L Anion Gap 12.6 (5-15) BUN 7 (7-18) mg/dL Creatinine 1.0 (0.55-1.02) mg/dL Est Cr Clr Drug Dosing 39.63 mL/min Estimated GFR (MDRD) 54 (>60) mL/min BUN/Creatinine Ratio 7.0 L (14-18) Glucose 82 L (83-115) mg/dL Calcium 8.2 L (8.5-10.1) mg/dL Magnesium 1.8 (1.8-2.4) mg/dl C-Reactive Protein 8.8 H* (<1.0) mg/dL Med Orders - Current: Current Medications Acetaminophen (Tylenol) 650 mg PO Q6H PRN PRN Reason: Pain/Fever Acetaminophen/Butalbital/Caffeine (Fioricet 325-50-40 Mg) 2 tab PO Q8H PRN PRN Reason: Headache Last Admin: 10/29/16 00:44 Dose: 2 tab Enoxaparin Sodium (Lovenox) 40 mg SUBCUT DAILY [facility] Last Admin: 10/29/16 09:13 Dose: 40 mg Hydromorphone HCl (Dilaudid) 0.5 mg IVPUSH Q4H PRN PRN Reason: Pain (moderate 4-6) Ceftriaxone Sodium 2 gm/ (Sodium Chloride) 100 mls @ 200 mls/hr IV Q24H [facility] Last Admin: 10/28/16 16:04 Dose: 200 mls/hr Metronidazole 500 mg/ Premix 100 mls @ 100 mls/hr IV Q8H [facility] Last Admin: 10/29/16 12:12 Dose: 100 mls/hr Potassium Chloride/Sodium Chloride (1/2 Ns With 20 Meq Kcl) 1,000 mls @ 50 mls/ hr IV ASDIRECTED [facility] Last Admin: 10/29/16 10:42 Dose: 50 mls/hr Ketorolac Tromethamine (Toradol) 15 mg IVPUSH Q8H PRN PRN Reason: Pain (severe 7-10) Last Admin: 10/27/16 11:24 Dose: 15 mg Levothyroxine Sodium (Synthroid) 88 mcg PO ACBREAKFAST [facility] Last Admin: 10/29/16 07:24 Dose: 88 mcg Metoclopramide HCl (Reglan) 10 mg IVPUSH Q6H [facility] Last Admin: 10/29/16 09:08 Dose: 10 mg Ondansetron HCl (Zofran) 4 mg IVPUSH Q8H PRN PRN Reason: Nausea/Vomiting Pantoprazole Sodium (Protonix) 40 mg PO BID [facility] Last Admin: 10/29/16 09:08 Dose: 40 mg Saccharomyces Boulardii (Florastor) 250 mg PO DAILY [facility] Last Admin: 10/29/16 10:43 Dose: 250 mg Senna/Docusate Sodium (Senna Plus) 2 tab PO BID PRN PRN Reason: Constipation Sodium Chloride (Saline Flush) 10 ml FLUSH ASDIRECTED PRN PRN Reason: Keep Vein Open Last Admin: 10/26/16 14:06 Dose: 10 ml Sodium Chloride (Saline Flush) 10 ml FLUSH ONETIME PRN PRN Reason: IV FLUSH Last Admin: 10/26/16 16:34 Dose: 10 ml Discontinued Medications Caffeine (Caffeine) 200 mg PO NOW STA Stop: 10/27/16 12:47 Last Admin: 10/27/16 14:39 Dose: Not Given Diatrizoate Meglum/Diatrizoate Sod (Gastrografin 37%) 120 ml PO ONETIME ONE Stop: 10/26/16 14:37 Last Admin: 10/26/16 16:46 Dose: 45 ml Diphtheria/Tetanus/Acell Pertussis (Adacel) 0.5 ml IM .ONCE ONE Stop: 10/29/16 08:08 Hydromorphone HCl (Dilaudid) 0.5 mg IVPUSH Q6H PRN PRN Reason: Pain (moderate 4-6) Last Admin: 10/27/16 12:43 Dose: 0.5 mg Sodium Chloride (Normal Saline) 1,000 mls @ 999 mls/hr IV ASDIRECTED [facility] Last Admin: 10/26/16 14:07 Dose: 100 mls/hr Ceftriaxone Sodium 2 gm/ (Sodium Chloride) 100 mls @ 200 mls/hr IV ONETIME ONE Stop: 10/26/16 16:19 Last Admin: 10/26/16 16:08 Dose: 200 mls/hr Sodium Chloride (Normal Saline) 100 mls @ 65 mls/hr IV ASDIRECTED [facility] Last Admin: 10/26/16 16:33 Dose: 65 mls/hr Sodium Chloride (Sodium Chloride 0.45%) 1,000 mls @ 999 mls/hr IV ASDIRECTED [facility] Last Admin: 10/27/16 01:05 Dose: 100 mls/hr Magnesium Sulfate 2 gm/ Premix 50 mls @ 25 mls/hr IV ONETIME ONE Stop: 10/27/16 12:25 Last Admin: 10/27/16 11:18 Dose: 25 mls/hr Potassium Chloride/Sodium Chloride (1/2 Ns With 20 Meq Kcl) 1,000 mls @ 125 mls /hr IV ASDIRECTED [facility] Last Admin: 10/27/16 19:33 Dose: 125 mls/hr Sodium Chloride (Normal Saline) Confirm Administered Dose 100 mls @ as directed .ROUTE .STK-MED ONE Stop: 10/27/16 14:36 Last Admin: 10/27/16 14:55 Dose: Not Given Iopamidol (Isovue-300 (61%)) 100 ml IVPUSH ONETIME ONE Stop: 10/26/16 14:37 Iopamidol (Isovue-370 (76%)) 100 ml IVPUSH ONETIME ONE Stop: 10/26/16 15:34 Last Admin: 10/26/16 16:33 Dose: 100 ml Ondansetron HCl (Zofran) 4 mg IVPUSH ONETIME ONE Stop: 10/26/16 14:02 Last Admin: 10/26/16 14:08 Dose: 4 mg Ondansetron HCl (Zofran) 4 mg IVPUSH ONETIME ONE Stop: 10/26/16 17:21 Last Admin: 10/26/16 17:24 Dose: 4 mg Ondansetron HCl (Zofran) 4 mg IVPUSH Q8H PRN PRN Reason: Nausea/Vomiting Pantoprazole Sodium (Protonix Iv) 40 mg IVPUSH Q12H [facility] Last Admin: 10/29/16 03:18 Dose: 40 mg Senna/Docusate Sodium (Senna Plus) 1 tab PO ASDIRECTED [facility] - Exam Quality Assessment: DVT Prophylaxis General: Alert, Oriented, No Acute Distress HEENT: Pupils Equal, Pupils Reactive, EOMI Neck: Supple, Trachea Midline, No JVD Lungs: Normal Respiratory Effort Cardiovascular: Regular Rate, Regular Rhythm GI/Abdominal Exam: Normal Bowel Sounds, Soft, Non-Tender, No Organomegaly, No Distention (Female) Exam: Deferred Back Exam: Normal Inspection Extremities: Normal Inspection, Normal Capillary Refill Skin: Warm, Dry, Intact Neurological: No New Focal Deficit, Normal Gait, Normal Speech Psy/Mental Status: Alert, Normal Affect, Normal Mood - Problem List & Annotations (1) Migraine SNOMED Code(s): 29756697 Code(s): G43.909 - MIGRAINE, UNSP, NOT INTRACTABLE, WITHOUT STATUS MIGRAINOSUS Status: Acute Current Visit: Yes (2) Constipation SNOMED Code(s): 43205524 Code(s): K59.00 - CONSTIPATION, UNSPECIFIED Status: Acute Current Visit: Yes (3) Colitis SNOMED Code(s): 79333237 Code(s): K52.9 - NONINFECTIVE GASTROENTERITIS AND COLITIS, UNSPECIFIED Status: Acute Current Visit: Yes (4) Urinary tract infection SNOMED Code(s): 60524183 Code(s): N39.0 - URINARY TRACT INFECTION, SITE NOT SPECIFIED Status: Acute Current Visit: Yes - Problem List Review Problem List Initiated/Reviewed/Updated: Yes - My Orders Last 24 Hours: My Active Orders 10/29/16 08:07 Vaccines to be Administered [RC] PER UNIT ROUTINE 10/29/16 09:00 Pantoprazole [ProTONIX] 40 mg PO BID 10/29/16 Lunch Soft Diet [DIET] 10/30/16 05:00 BASIC METABOLIC PANEL,BMP [CHEM] DAILY CBC WITH AUTO DIFF [HEME] DAILY CRP [C-REACTIVE PROTEIN] [CHEM] DAILY MAGNESIUM [CHEM] DAILY - Plan Plan:: Impression: Abdominal pain, acute diverticulitis Acute on chronic UTI, failed outpatient Cipro Migraine headache-->improved History of transient amnesia (cf TIA) Query depression Plan: NPO-->change to clear liquids; advance to soft diet IVF Follow electrolytes Pain meds Home meds Rocephin/Flagyl Await Ur Cx [facility] Labs Anti-emetics DVT/GI prohylaxis DC 10/30/16.
[2016-10-29] MEDS ORDERED: Potassium Chloride 10% 20 MEQ/15 ML Soln 30 ML UD Cup PO ONE (13:30)
[2016-10-29] MEDS ORDERED: Magnesium Sulfate/Water 2 GM in Premix Bag 1 BAG IV ONE ×2 (13:30→16:42)
[2016-10-29] MEDS: cefTRIAXone 2 GM in Sodium Chloride 0.9% 100 ML IV SCH (16:13)
[2016-10-29] MEDS ORDERED: Potassium Chloride 20 MEQ Tab.ER PO ONE (16:45)
[2016-10-30] MEDS: Metoclopramide 10 MG/2 ML SDV IVPUSH SCH ×3 (01:09→08:03)
[2016-10-30] MEDS: metroNIDAZOLE/Normal Saline 500 MG in Premix Bag 1 BAG IV SCH (03:03)
[2016-10-30] MEDS: Sodium Chloride 0.45% with KCl 1,000 ML IV SCH (07:08)
[2016-10-30] MEDS: Levothyroxine 88 MCG Tab PO SCH (07:09)
[2016-10-30] MEDS: Saccharomyces Boulardii (Probiotic) 250 MG Cap PO SCH (08:03)
[2016-10-30] MEDS: Pantoprazole 40 MG Tab.CR PO SCH (08:03)
[2016-10-30] MEDS: Enoxaparin 40 MG/0.4 ML Syringe SUBCUT SCH (08:03)
[2016-10-30] MEDS ORDERED: metroNIDAZOLE 500 MG Tab PO ONE (08:35)
--- NOTE | 2016-10-30 09:08 | PCM.DCSUM1 ---
<Kelsi Schrader M - Last Filed: 11/01/16 13:25> Discharge Summary - Hospital Course Free Text/Narrative:: 75 year old female with a history of chronic UTIs, had been started on Cipro by her PCP. She presented to the ED with multiple complaints, MS telemetry admission was initiated after acute on chronic UTI, failed outpatient therapy was documented. She additionally was found to have diverticulitis with a complaint of abdominal pain. She has chronic constipation and requires laxatives to have a bowel movement. Associated with the abdominal pain is nausea with occasional vomiting. There has been no fever or chills. She has had most of primary medical needs via the walk in clinic. Additionally has unfortunately not seen a urologist or warper creeler regarding her frequent UTIs in several years. She has had a diagnosis of transient amnesia, this reportedly was diagnosed in [place]; additional neurology history includes migraine headaches. There is also a possible TIA history which requires clarification. Hospitalist service is consulted for admission as above. She is treated with IV abx of rocephin and flagyl, IVF for hydration, antiemetics. Diet was slowly advanced as tolerated. She has hx of chronic headaches and transient amnesia. She will see Neurology as outpatient for this. UC was positive for ecoli- sensitive to rocephin. She rec'd 4 days of IV abx as noted above. She worked with PT/OT, did well. She is discharged home on Levaquin and flagyl with outpatient consults/follow up with Urology and Gastroenterology. She is discharged home with family to assist as needed. - Discharge Data Discharge Date: 10/30/16 (admit date 10/26/16) Discharge Disposition: Home, Self-Care 01 Condition: Good - Patient Summary/Data Operative Procedure(s) Performed: None Complications: None Consults: Consultations 10/26/16 20:20 Consult to Physical Therapy [PT Evaluation and Treatment] [CONS] Routine Consult to Vp Strategic Planning [CONS] Routine 10/26/16 20:21 Consult to Occupational Therapy [OT Evaluation and Treatment] [CONS] Routine 10/30/16 08:33 Consult to Air Operations Manager [CONS] Routine Labs Pending at D/C: None Recommended Follow-up Testing/Procedures: Can continue to follow up with Air Operations Manager as outpatient if needed Follow up with Gastroenterology as scheduled Follow up with PCP within 5-7 days of discharge Push fluids Planned Operative Procedure(s) after DC: None Hospital Course: As above - Patient Instructions Diet: Usual Diet as Tolerated, GI Soft/Low Residue/Low Fiber Activity: As Tolerated Showering/Bathing: May Shower Notify Provider of: Fever, Increased Pain, Nausea and/or Vomiting - Discharge Plan Prescriptions/Med Rec: Bifidobacter. Bifidum/B.Longum [Florajen Bifidoblend] 460 mg PO DAILY #30 capsule Levofloxacin [Levaquin] 500 mg PO Q24H #5 tablet Pantoprazole [ProTONIX] 40 mg PO BID #60 tab.cr metroNIDAZOLE [Flagyl] 500 mg PO Q8H #15 tablet Home Medications: Home Meds Estradiol [Vagifem] 10 mcg VG WEEKLY 10/10/13 [History] Levothyroxine [Synthroid] 88 mcg PO DAILY 10/10/13 [History] Aspirin 40 mg PO ASDIRECTED 10/26/16 [History] Colon Health 1 tab PO ASDIRECTED 10/26/16 [History] L Acidophil/B Lactis/B Longum [Florajen3] 1 tab PO DAILY 10/26/16 [History] Bifidobacter. Bifidum/B.Longum [Florajen Bifidoblend] 460 mg PO DAILY #30 capsule 10/30/16 [Rx] Levofloxacin [Levaquin] 500 mg PO Q24H #5 tablet 10/30/16 [Rx] Pantoprazole [ProTONIX] 40 mg PO BID #60 tab.cr 10/30/16 [Rx] metroNIDAZOLE [Flagyl] 500 mg PO Q8H #15 tablet 10/30/16 [Rx] Patient Handouts: Diverticulitis, Urinary Tract Infection, Adult, [id number] , Migraine Headache Referrals: Juanita Jenkins MD [Family Provider] - Angel Bartlett MD [Ordering Only Provider] - 11/08/16 10:00 am Rito Gaspar MD [Ordering Only Provider] - (The doctors office will call you with a time and date after they receive information from the hospital stay (the hospital) will do this.) - Discharge Summary/Plan Comment DC Time >30 min.: Yes (40 min) - General Info Date of Service: 10/30/16 Functional Status: Reports: Pain Controlled, Tolerating Diet, Ambulating, Urinating - Review of Systems General: Denies: Fever HEENT: Reports: No Symptoms Pulmonary: Reports: No Symptoms Cardiovascular: Reports: No Symptoms Gastrointestinal: Reports: Abdominal Pain (resolved), Constipation (acute on chronic--resolved). Denies: Nausea, Vomiting Genitourinary: Reports: No Symptoms Neurological: Reports: No Symptoms Psychiatric: Reports: No Symptoms - Patient Data Vitals - Most Recent: Last Vital Signs Temp 98.4 F 10/30/16 01:10 Pulse 84 10/30/16 01:10 Resp 16 10/30/16 01:10 BP 108/53 L 10/30/16 01:10 Pulse Ox 97 10/30/16 01:10 Weight - Most Recent: 65.998 kg I&O - Last 24 hours: Intake & Output 10/29/16 10/30/16 10/30/16 22:59 06:59 14:59 Intake Total 2050 1153 Output Total 450 1250 Balance 1600 -97 Lab Results - Last 24 hrs: Laboratory Results - last 24 hr 10/30/16 10/30/16 Range/Units 05:32 05:32 WBC 6.69 (3.98-10.04) K/mm3 RBC 4.07 (3.98-5.22) M/mm3 Hgb 13.1 (11.2-15.7) gm/L Hct 37.3 (34.1-44.9) % MCV 91.6 (79.4-94.8) fl MCH 32.2 (25.6-32.2) pg MCHC 35.1 (32.2-35.5) g/dl RDW Std Deviation 42.2 (36.4-46.3) fL Plt Count 189 (182-369) K/mm3 MPV 10.0 (9.4-12.3) fl Neut % (Auto) 71.0 (34.0-71.1) % Lymph % (Auto) 17.3 L (19.3-51.7) % [place] % (Auto) 9.4 (4.7-12.5) % Eos % (Auto) 1.9 (0.7-5.8) Baso % (Auto) 0.4 (0.1-1.2) % Neut # (Auto) 4.74 (1.56-6.13) K/mm3 Lymph # (Auto) 1.16 L (1.18-3.74) K/mm3 [place] # (Auto) 0.63 H (0.24-0.36) K/mm3 Eos # (Auto) 0.13 (0.04-0.36) K/mm3 Baso # (Auto) 0.03 (0.01-0.08) K/mm3 Sodium 140 (136-145) mEq/L Potassium 3.8 (3.5-5.1) mEq/L Chloride 106 (98-107) mEq/L Carbon Dioxide 24 (21-32) mEq/L Anion Gap 13.8 (5-15) BUN 11 (7-18) mg/dL Creatinine 1.0 (0.55-1.02) mg/dL Est Cr Clr Drug Dosing 39.63 mL/min Estimated GFR (MDRD) 54 (>60) mL/min BUN/Creatinine Ratio 11.0 L (14-18) Glucose 96 (83-115) mg/dL Calcium 8.3 L (8.5-10.1) mg/dL Magnesium 2.1 (1.8-2.4) mg/dl C-Reactive Protein 5.5 H* (<1.0) mg/dL Med Orders - Current: Current Medications Acetaminophen (Tylenol) 650 mg PO Q6H PRN PRN Reason: Pain/Fever Acetaminophen/Butalbital/Caffeine (Fioricet 325-50-40 Mg) 2 tab PO Q8H PRN PRN Reason: Headache Last Admin: 10/29/16 00:44 Dose: 2 tab Enoxaparin Sodium (Lovenox) 40 mg SUBCUT DAILY [facility] Last Admin: 10/30/16 08:03 Dose: 40 mg Hydromorphone HCl (Dilaudid) 0.5 mg IVPUSH Q4H PRN PRN Reason: Pain (moderate 4-6) Ketorolac Tromethamine (Toradol) 15 mg IVPUSH Q8H PRN PRN Reason: Pain (severe 7-10) Last Admin: 10/27/16 11:24 Dose: 15 mg Levothyroxine Sodium (Synthroid) 88 mcg PO ACBREAKFAST [facility] Last Admin: 10/30/16 07:09 Dose: 88 mcg Metoclopramide HCl (Reglan) 10 mg IVPUSH Q6H [facility] Last Admin: 10/30/16 08:03 Dose: 10 mg Ondansetron HCl (Zofran) 4 mg IVPUSH Q8H PRN PRN Reason: Nausea/Vomiting Pantoprazole Sodium (Protonix) 40 mg PO BID [facility] Last Admin: 10/30/16 08:03 Dose: 40 mg Saccharomyces Boulardii (Florastor) 250 mg PO DAILY [facility] Last Admin: 10/30/16 08:03 Dose: 250 mg Senna/Docusate Sodium (Senna Plus) 2 tab PO BID PRN PRN Reason: Constipation Sodium Chloride (Saline Flush) 10 ml FLUSH ASDIRECTED PRN PRN Reason: Keep Vein Open Last Admin: 10/26/16 14:06 Dose: 10 ml Sodium Chloride (Saline Flush) 10 ml FLUSH ONETIME PRN PRN Reason: IV FLUSH Last Admin: 10/26/16 16:34 Dose: 10 ml Discontinued Medications Caffeine (Caffeine) 200 mg PO NOW STA Stop: 10/27/16 12:47 Last Admin: 10/27/16 14:39 Dose: Not Given Diatrizoate Meglum/Diatrizoate Sod (Gastrografin 37%) 120 ml PO ONETIME ONE Stop: 10/26/16 14:37 Last Admin: 10/26/16 16:46 Dose: 45 ml Diphtheria/Tetanus/Acell Pertussis (Adacel) 0.5 ml IM .ONCE ONE Stop: 10/29/16 08:08 Hydromorphone HCl (Dilaudid) 0.5 mg IVPUSH Q6H PRN PRN Reason: Pain (moderate 4-6) Last Admin: 10/27/16 12:43 Dose: 0.5 mg Sodium Chloride (Normal Saline) 1,000 mls @ 999 mls/hr IV ASDIRECTED [facility] Last Admin: 10/26/16 14:07 Dose: 100 mls/hr Ceftriaxone Sodium 2 gm/ (Sodium Chloride) 100 mls @ 200 mls/hr IV ONETIME ONE Stop: 10/26/16 16:19 Last Admin: 10/26/16 16:08 Dose: 200 mls/hr Sodium Chloride (Normal Saline) 100 mls @ 65 mls/hr IV ASDIRECTED [facility] Last Admin: 10/26/16 16:33 Dose: 65 mls/hr Sodium Chloride (Sodium Chloride 0.45%) 1,000 mls @ 999 mls/hr IV ASDIRECTED [facility] Last Admin: 10/27/16 01:05 Dose: 100 mls/hr Ceftriaxone Sodium 2 gm/ (Sodium Chloride) 100 mls @ 200 mls/hr IV Q24H [facility] Last Admin: 10/29/16 16:13 Dose: 200 mls/hr Metronidazole 500 mg/ Premix 100 mls @ 100 mls/hr IV Q8H [facility] Last Admin: 10/30/16 03:03 Dose: 100 mls/hr Magnesium Sulfate 2 gm/ Premix 50 mls @ 25 mls/hr IV ONETIME ONE Stop: 10/27/16 12:25 Last Admin: 10/27/16 11:18 Dose: 25 mls/hr Potassium Chloride/Sodium Chloride (1/2 Ns With 20 Meq Kcl) 1,000 mls @ 125 mls /hr IV ASDIRECTED [facility] Last Admin: 10/27/16 19:33 Dose: 125 mls/hr Sodium Chloride (Normal Saline) Confirm Administered Dose 100 mls @ as directed .ROUTE .STK-MED ONE Stop: 10/27/16 14:36 Last Admin: 10/27/16 14:55 Dose: Not Given Potassium Chloride/Sodium Chloride (1/2 Ns With 20 Meq Kcl) 1,000 mls @ 50 mls/ hr IV ASDIRECTED [facility] Last Admin: 10/30/16 07:08 Dose: 50 mls/hr Magnesium Sulfate 2 gm/ Premix 50 mls @ 25 mls/hr IV ONETIME ONE Stop: 10/29/16 15:29 Last Admin: 10/29/16 19:14 Dose: Not Given Magnesium Sulfate 2 gm/ Premix 50 mls @ 25 mls/hr IV ONETIME ONE Stop: 10/29/16 18:41 Last Admin: 10/29/16 17:06 Dose: 25 mls/hr Iopamidol (Isovue-300 (61%)) 100 ml IVPUSH ONETIME ONE Stop: 10/26/16 14:37 Iopamidol (Isovue-370 (76%)) 100 ml IVPUSH ONETIME ONE Stop: 10/26/16 15:34 Last Admin: 10/26/16 16:33 Dose: 100 ml Metronidazole (Flagyl) 500 mg PO ONETIME ONE Stop: 10/30/16 08:36 Last Admin: 10/30/16 08:44 Dose: 500 mg Ondansetron HCl (Zofran) 4 mg IVPUSH ONETIME ONE Stop: 10/26/16 14:02 Last Admin: 10/26/16 14:08 Dose: 4 mg Ondansetron HCl (Zofran) 4 mg IVPUSH ONETIME ONE Stop: 10/26/16 17:21 Last Admin: 10/26/16 17:24 Dose: 4 mg Ondansetron HCl (Zofran) 4 mg IVPUSH Q8H PRN PRN Reason: Nausea/Vomiting Pantoprazole Sodium (Protonix Iv) 40 mg IVPUSH Q12H [facility] Last Admin: 10/29/16 03:18 Dose: 40 mg Potassium Chloride (Potassium Chloride) 40 meq PO ONETIME ONE Stop: 10/29/16 13:31 Last Admin: 10/29/16 19:14 Dose: Not Given Potassium Chloride (Klor-Con M20) 40 meq PO ONETIME ONE Stop: 10/29/16 16:46 Last Admin: 10/29/16 17:09 Dose: 40 meq Senna/Docusate Sodium (Senna Plus) 1 tab PO ASDIRECTED [facility] - Exam Quality Assessment: Reports: DVT Prophylaxis General: Reports: Alert, Oriented, No Acute Distress HEENT: Reports: Pupils Equal, Pupils Reactive, Mucous Membr. Moist/[place]ck: Reports: Supple Lungs: Reports: Clear to Auscultation, Normal Respiratory Effort Cardiovascular: Reports: Regular Rate, Regular Rhythm GI/Abdominal Exam: Normal Bowel Sounds, Soft, No Organomegaly (Female) Exam: Deferred Rectal (Female) Exam: Deferred Extremities: Normal Inspection Neurological: Reports: No New Focal Deficit Psy/Mental Status: Reports: Alert, Normal Affect, Normal Mood *Q Meaningful Use (DIS) - VTE *Q VTE Criteria *Q: - Stroke *Q Stroke Criteria *Q: - AMI *Q AMI Criteria *Q: <Adrianna Fish - Last Filed: 11/01/16 17:26> Discharge Summary - Hospital Course Free Text/Narrative:: GI appt to be arranged by patient; remaining appts as scheduled. - Discharge Diagnosis/Problem(s) (1) Migraine SNOMED Code(s): 11811793 ICD Code: G43.909 - MIGRAINE, UNSP, NOT INTRACTABLE, WITHOUT STATUS MIGRAINOSUS Status: Acute (2) Constipation SNOMED Code(s): 47935505 ICD Code: K59.00 - CONSTIPATION, UNSPECIFIED Status: Acute (3) Colitis SNOMED Code(s): 54111788 ICD Code: K52.9 - NONINFECTIVE GASTROENTERITIS AND COLITIS, UNSPECIFIED Status: Acute (4) Urinary tract infection SNOMED Code(s): 41054509 ICD Code: N39.0 - URINARY TRACT INFECTION, SITE NOT SPECIFIED Status: Acute - Patient Summary/Data Consults: Consultations 10/26/16 20:20 Consult to Physical Therapy [PT Evaluation and Treatment] [CONS] Routine Consult to Vp Strategic Planning [CONS] Routine 10/26/16 20:21 Consult to Occupational Therapy [OT Evaluation and Treatment] [CONS] Routine 10/30/16 08:33 Consult to Air Operations Manager [CONS] Routine - Patient Data Vitals - Most Recent: Last Vital Signs Temp 36.6 C 10/30/16 07:57 Pulse 76 10/30/16 07:57 Resp 17 10/30/16 07:57 BP 116/67 10/30/16 07:57 Pulse Ox 94 L 10/30/16 07:57 Med Orders - Current: Current Medications Discontinued Medications Acetaminophen (Tylenol) 650 mg PO Q6H PRN PRN Reason: Pain/Fever Acetaminophen/Butalbital/Caffeine (Fioricet 325-50-40 Mg) 2 tab PO Q8H PRN PRN Reason: Headache Last Admin: 10/29/16 00:44 Dose: 2 tab Caffeine (Caffeine) 200 mg PO NOW STA Stop: 10/27/16 12:47 Last Admin: 10/27/16 14:39 Dose: Not Given Diatrizoate Meglum/Diatrizoate Sod (Gastrografin 37%) 120 ml PO ONETIME ONE Stop: 10/26/16 14:37 Last Admin: 10/26/16 16:46 Dose: 45 ml Diphtheria/Tetanus/Acell Pertussis (Adacel) 0.5 ml IM .ONCE ONE Stop: 10/29/16 08:08 Enoxaparin Sodium (Lovenox) 40 mg SUBCUT DAILY [facility] Last Admin: 10/30/16 08:03 Dose: 40 mg Hydromorphone HCl (Dilaudid) 0.5 mg IVPUSH Q6H PRN PRN Reason: Pain (moderate 4-6) Last Admin: 10/27/16 12:43 Dose: 0.5 mg Hydromorphone HCl (Dilaudid) 0.5 mg IVPUSH Q4H PRN PRN Reason: Pain (moderate 4-6) Sodium Chloride (Normal Saline) 1,000 mls @ 999 mls/hr IV ASDIRECTED [facility] Last Admin: 10/26/16 14:07 Dose: 100 mls/hr Ceftriaxone Sodium 2 gm/ (Sodium Chloride) 100 mls @ 200 mls/hr IV ONETIME ONE Stop: 10/26/16 16:19 Last Admin: 10/26/16 16:08 Dose: 200 mls/hr Sodium Chloride (Normal Saline) 100 mls [facility] Admin: 10/26/16 16:33 Dose: 65 mls/hr Sodium Chloride (Sodium Chloride 0.45%) 1,000 mls @ 999 [facility]ls[facility] Last Admin: 10/27/16 01:05 Dose: 100 mls/hr Ceftriaxone Sodium 2 gm/ (Sodium Chloride) 100 mls @ 200 mls/hr IV Q24H [facility] Last Admin: 10/29/16 16:13 Dose: 200 mls/hr Metronidazole 500 mg/ Premix 100 mls @ 100 mls/hr IV Q8H [facility] Last Admin: 10/30/16 03:03 Dose: 100 mls/hr Magnesium Sulfate 2 gm/ Premix 50 mls @ 25 mls/hr IV ONETIME ONE Stop: 10/27/16 12:25 Last Admin: 10/27/16 11:18 Dose: 25 mls/hr Potassium Chloride/Sodium Chloride (1/2 Ns With 20 Meq Kcl) 1,000 mls @ 125 mls /hr IV ASDIRECTED [facility] Last Admin: 10/27/16 19:33 Dose: 125 mls/hr Sodium Chloride (Normal Saline) Confirm Administered Dose 100 mls @ as directed .ROUTE .STK-MED ONE Stop: 10/27/16 14:36 Last Admin: 10/27/16 14:55 Dose: Not Given Potassium Chloride/Sodium Chloride (1/2 Ns With 20 Meq Kcl) 1,000 mls @ 50 mls/ hr IV ASDIRECTED [facility] Last Admin: 10/30/16 07:08 Dose: 50 mls/hr Magnesium Sulfate 2 gm/ Premix 50 mls @ 25 mls/hr IV ONETIME ONE Stop: 10/29/16 15:29 Last Admin: 10/29/16 19:14 Dose: Not Given Magnesium Sulfate 2 gm/ Premix 50 mls @ 25 mls/hr IV ONETIME ONE Stop: 10/29/16 18:41 Last Admin: 10/29/16 17:06 Dose: 25 mls/hr Iopamidol (Isovue-300 (61%)) 100 ml IVPUSH ONETIME ONE Stop: 10/26/16 14:37 Iopamidol (Isovue-370 (76%)) 100 ml IVPUSH ONETIME ONE Stop: 10/26/16 15:34 Last Admin: 10/26/16 16:33 Dose: 100 ml Ketorolac Tromethamine (Toradol) 15 mg IVPUSH Q8H PRN PRN Reason: Pain (severe 7-10) Last Admin: 10/27/16 11:24 Dose: 15 mg Levothyroxine Sodium (Synthroid) 88 mcg PO ACBREAKFAST [facility] Last Admin: 10/30/16 07:09 Dose: 88 mcg Metoclopramide HCl (Reglan) 10 mg IVPUSH Q6H [facility] Last Admin: 10/30/16 08:03 Dose: 10 mg Metronidazole (Flagyl) 500 mg PO ONETIME ONE Stop: 10/30/16 08:36 Last Admin: 10/30/16 08:44 Dose: 500 mg Ondansetron HCl (Zofran) 4 mg IVPUSH ONETIME ONE Stop: 10/26/16 14:02 Last Admin: 10/26/16 14:08 Dose: 4 mg Ondansetron HCl (Zofran) 4 mg IVPUSH ONETIME ONE Stop: 10/26/16 17:21 Last Admin: 10/26/16 17:24 Dose: 4 mg Ondansetron HCl (Zofran) 4 mg IVPUSH Q8H PRN PRN Reason: Nausea/Vomiting Ondansetron HCl (Zofran) 4 mg IVPUSH Q8H PRN PRN Reason: Nausea/Vomiting Pantoprazole Sodium (Protonix Iv) 40 mg IVPUSH Q12H [facility] Last Admin: 10/29/16 03:18 Dose: 40 mg Pantoprazole Sodium (Protonix) 40 mg PO BID [facility] Last Admin: 10/30/16 08:03 Dose: 40 mg Potassium Chloride (Potassium Chloride) 40 meq PO ONETIME ONE Stop: 10/29/16 13:31 Last Admin: 10/29/16 19:14 Dose: Not Given Potassium Chloride (Klor-Con M20) 40 meq PO ONETIME ONE Stop: 10/29/16 16:46 Last Admin: 10/29/16 17:09 Dose: 40 meq Saccharomyces Boulardii (Florastor) 250 mg PO DAILY [facility] Last Admin: 10/30/16 08:03 Dose: 250 mg Senna/Docusate Sodium (Senna Plus) 1 tab PO ASDIRECTED [facility] Senna/Docusate Sodium (Senna Plus) 2 tab PO BID PRN PRN Reason: Constipation Sodium Chloride (Saline Flush) 10 ml FLUSH ASDIRECTED PRN PRN Reason: Keep Vein Open Last Admin: 10/26/16 14:06 Dose: 10 ml Sodium Chloride (Saline Flush) 10 ml FLUSH ONETIME PRN PRN Reason: IV FLUSH Last Admin: 10/26/16 16:34 Dose: 10 ml *Q Meaningful Use (DIS) - VTE *Q VTE Criteria *Q: - Stroke *Q Stroke Criteria *Q: - AMI *Q AMI Criteria *Q:
[2016-10-30 11:06] VITALS: BP 116/67
== END 2016-10-30 10:40 | disposition home or self-care (01) | DRG 690 ==
LOC: JD.ED 12:58 → SUPCPDRO 12:58 → UNDOADMIN 20:02 → JD.ICU 20:02 → JD.MS 10-27 10:19 → UNDODISIN 10-30 10:40
PROVIDERS: ADMIT Internal Medicine Cardiovascular Disease; ATTEND Internal Medicine Cardiovascular Disease
DX: N39.0 Urinary tract infection, site not specified (principal); K57.92 Diverticulitis of intestine, part unspecified, without perforation or abscess without bleeding; K52.9 Noninfective gastroenteritis and colitis, unspecified; G43.909 Migraine, unspecified, not intractable, without status migrainosus; G45.4 Transient global amnesia; K59.09 Other constipation; Z87.440 Personal history of urinary (tract) infections; Z86.73 Personal history of transient ischemic attack (TIA), and cerebral infarction without residual deficits; E03.9 Hypothyroidism, unspecified; M19.90 Unspecified osteoarthritis, unspecified site; Z87.891 Personal history of nicotine dependence; Z79.82 Long term (current) use of aspirin; Z79.899 Other long term (current) drug therapy
CPT/HCPCS: 36415; 70450; 71010; 71260; 74177; 80053; 81001; 83605 ×2; 83690; 85025; 85610; 85730; 86140; 87040 ×2; 87086; 87088; 87186; 93005; 96361; 96365; 96375; 96376; 99285; J0696; J2405 ×2; J7030 ×2; J7040; J7050 ×2; Q9963; Q9967; 80048; 83735; 84443; 87493; 89055; 97116-GP; 97162-GP; 97165-GO; 99284; A9270; A9270-GY; C9113; J1170; J1650; J1885; J2765; J3475; J3480